=== PATIENT | female | born 1970 | race Caucasian/White ===

== ENCOUNTER 2018-01-21 12:44 | Emergency (ER) | payer OTHER ==
[2018-01-21] MEDS ORDERED: IPRATROPIUM 0.5 MG/2.5 ML NEBU INHALATION STA (13:54)
[2018-01-21] MEDS ORDERED: SODIUM CHLORIDE 0.9% 1,000 ML IV STA ×2 (13:54)
[2018-01-21] MEDS ORDERED: methylPREDNISolone SOD SUCCI 125 MG/2 ML VIAL IV STA (13:54)
[2018-01-21] MEDS ORDERED: LEVOFLOXACIN 750MG-D5W PMX 750 MG in DEXTROSE/WATER 1 150ML.BAG IVPB STA (13:54)
[2018-01-21] MEDS ORDERED: ALBUTEROL NEBULIZED 2.5 MG/3 ML INHALATION STA (13:54)
[2018-01-21 14:18] VITALS: PULSE 88
--- NOTE | 2018-01-21 14:36 | ED ---
General Adult HPI - General Chief complaint: Upper Respiratory Infection Stated complaint: SOB Time Seen by Provider: 01/21/18 13:41 Source: patient, RN notes reviewed, old records reviewed Mode of arrival: wheelchair Limitations: no limitations - History of Present Illness Initial comments: This is a 47-year-old female the ER for evaluation. States she presents for evaluation regards to cough congestion difficulty breathing. Patient was recently treated for ear infection upper respiratory infection is progressively worsened. Significant shortness of breath that is worsening. Patient is a history of smoking. No travel history no sick contacts, patient does have history of DVT - Related Data Previous Rx's Medication Instructions Recorded Albuterol Sulfate [Proair Hfa] 1 - 2 puff INHALATION Q4H PRN #1 01/21/18 inhaler Levofloxacin [Levaquin] 500 mg PO DAILY #7 tab 01/21/18 predniSONE 50 mg PO DAILY #5 tab 01/21/18 Allergies Allergy/AdvReac Type Severity Reaction Status Date / Time No Known Allergies Allergy Verified 01/21/18 13:06 Review of Systems ROS Statement: Those systems with pertinent positive or pertinent negative responses have been documented in the HPI. ROS Other: All systems not noted in ROS Statement are negative. Past Medical History Past Medical History: Thyroid Disorder History of Any Multi-Drug Resistant Organisms: None Reported Past Surgical History: Tubal Ligation Additional Past Surgical History / Comment(s): breast augmentation, "tummy tuck ", "bladder prolapse surgery" Past Psychological History: No Psychological Hx Reported Smoking Status: Current every day smoker Past Alcohol Use History: Rare Past Drug Use History: Marijuana General Exam Limitations: no limitations General appearance: alert, in no apparent distress Head exam: Present: atraumatic, normocephalic, normal inspection Eye exam: Present: normal appearance, PERRL, EOMI. Absent: scleral icterus, conjunctival injection, periorbital swelling ENT exam: Present: normal exam, mucous membranes moist Neck exam: Present: normal inspection. Absent: tenderness, meningismus, lymphadenopathy Respiratory exam: Present: normal lung sounds bilaterally. Absent: respiratory distress, wheezes, rales, rhonchi, stridor Cardiovascular Exam: Present: regular rate, normal rhythm, normal heart sounds. Absent: systolic murmur, diastolic murmur, rubs, gallop, clicks GI/Abdominal exam: Present: soft, normal bowel sounds. Absent: distended, tenderness, guarding, rebound, rigid Extremities exam: Present: normal inspection, full ROM, normal capillary refill. Absent: tenderness, pedal edema, joint swelling, calf tenderness Back exam: Present: normal inspection Neurological exam: Present: alert, oriented X3, CN II-XII intact Psychiatric exam: Present: normal affect, normal mood Skin exam: Present: warm, dry, intact, normal color. Absent: rash Course Vital Signs 01/21/18 01/21/18 13:03 14:18 Temperature 97.8 F Pulse Rate 81 88 Respiratory 18 22 Rate Blood Pressure 130/79 O2 Sat by Pulse 95 Oximetry - Reevaluation(s) Reevaluation #1: 01/21/18 15:25 Patient symptoms are much improved after breathing treatment EKG Findings - EKG Comments: EKG Findings:: EKG shows normal sinus rhythm rate of 69, KS 134, QRS 80, QTC 407 Medical Decision Making - Medical Decision Making 47 female DEL with cough and congestion, patient has acute bronchitis, urged to continue quit smoking. Patient was placed on steroids albuterol can be discharged home - Lab Data Result diagrams: 01/21/18 14:16 01/21/18 14:16 Lab Results 01/21/18 01/21/18 01/21/18 Range/Units 14:16 14:16 14:16 WBC 13.1 H (3.8-10.6) k/uL RBC 4.76 (3.80-5.40) m/uL Hgb 15.7 (11.4-16.0) gm/dL Hct 45.4 (34.0-46.0) % MCV 95.4 (80.0-100.0) fL MCH 33.0 (25.0-35.0) pg MCHC 34.6 (31.0-37.0) g/dL RDW 13.9 (11.5-15.5) % Plt Count 236 (150-450) k/uL Neutrophils % 69 % Lymphocytes % 23 % Monocytes % 4 % Eosinophils % 2 % Basophils % 0 % Neutrophils # 9.1 H (1.3-7.7) k/uL Lymphocytes # 3.0 (1.0-4.8) k/uL Monocytes # 0.5 (0-1.0) k/uL Eosinophils # 0.2 (0-0.7) k/uL Basophils # 0.0 (0-0.2) k/uL PT (9.0-12.0) sec INR (<1.2) APTT (22.0-30.0) sec D-Dimer (<0.60) mg/L FEU Sodium 140 (137-145) mmol/L Potassium 4.6 (3.5-5.1) mmol/L Chloride 97 L (98-107) mmol/L Carbon Dioxide 32 H (22-30) mmol/L Anion Gap 11 mmol/L BUN 12 (7-17) mg/dL Creatinine 0.70 (0.52-1.04) mg/dL Est GFR (CKD-EPI)AfAm >90 (>60 ml/min/1.73 sqM) Est GFR (CKD-EPI)NonAf >90 (>60 ml/min/1.73 sqM) Glucose 85 (74-99) mg/dL Calcium 9.4 (8.4-10.2) mg/dL Magnesium 2.1 (1.6-2.3) mg/dL Total Bilirubin 0.9 (0.2-1.3) mg/dL AST 23 (14-36) U/L ALT 44 (9-52) U/L Alkaline Phosphatase 85 (38-126) U/L Total Creatine Kinase 35 (30-135) U/L CK-MB (CK-2) 0.5 (0.0-2.4) ng/mL CK-MB (CK-2) Rel Index 1.4 Troponin I <0.012 (0.000-0.034) ng/mL NT-Pro-B Natriuret Pep pg/mL Total Protein 6.6 (6.3-8.2) g/dL Albumin 4.0 (3.5-5.0) g/dL 01/21/18 01/21/18 Range/Units 14:16 14:16 WBC (3.8-10.6) k/uL RBC (3.80-5.40) m/uL Hgb (11.4-16.0) gm/dL Hct (34.0-46.0) % MCV (80.0-100.0) fL MCH (25.0-35.0) pg MCHC (31.0-37.0) g/dL RDW (11.5-15.5) % Plt Count (150-450) k/uL Neutrophils % % Lymphocytes % % Monocytes % % Eosinophils % % Basophils % % Neutrophils # (1.3-7.7) k/uL Lymphocytes # (1.0-4.8) k/uL Monocytes # (0-1.0) k/uL Eosinophils # (0-0.7) k/uL Basophils # (0-0.2) k/uL PT 9.8 (9.0-12.0) sec INR 1.0 (<1.2) APTT 23.2 (22.0-30.0) sec D-Dimer 0.58 (<0.60) mg/L FEU Sodium (137-145) mmol/L Potassium (3.5-5.1) mmol/L Chloride (98-107) mmol/L Carbon Dioxide (22-30) mmol/L Anion Gap mmol/L BUN (7-17) mg/dL Creatinine (0.52-1.04) mg/dL Est GFR (CKD-EPI)AfAm (>60 ml/min/1.73 sqM) Est GFR (CKD-EPI)NonAf (>60 ml/min/1.73 sqM) Glucose (74-99) mg/dL Calcium (8.4-10.2) mg/dL Magnesium (1.6-2.3) mg/dL Total Bilirubin (0.2-1.3) mg/dL AST (14-36) U/L ALT (9-52) U/L Alkaline Phosphatase (38-126) U/L Total Creatine Kinase (30-135) U/L CK-MB (CK-2) (0.0-2.4) ng/mL CK-MB (CK-2) Rel Index Troponin I (0.000-0.034) ng/mL NT-Pro-B Natriuret Pep 71 pg/mL Total Protein (6.3-8.2) g/dL Albumin (3.5-5.0) g/dL - Radiology Data Radiology results: report reviewed (Chest x-rays negative for acute disease), image reviewed Disposition Clinical Impression: Bronchitis, Asthmatic bronchitis, Upper respiratory infection Disposition: HOME SELF-CARE Condition: Good Instructions: Acute Bronchitis (ED), Wheezing (ED) Prescriptions: Albuterol Sulfate [Proair Hfa] 1 - 2 puff INHALATION Q4H PRN #1 inhaler PRN Reason: Shortness Of Breath Levofloxacin [Levaquin] 500 mg PO DAILY #7 tab predniSONE 50 mg PO DAILY #5 tab Is patient prescribed a controlled substance at d/c from ED?: No Referrals: Fitz Ross MD [Primary Care Provider] - 1-2 days
[2018-01-21 14:38] LABS: ALT 44 U/L (9-52); AST 23 U/L (14-36); Alkaline Phosphatase 85 U/L (38-126); Anion Gap 11 mmol/L; Blood Urea Nitrogen 12 mg/dL (7-17); Calcium 9.4 mg/dL (8.4-10.2); Carbon Dioxide 32 mmol/L (22-30); Chloride 97 mmol/L (98-107); Glucose 85 mg/dL (74-99); Magnesium 2.1 mg/dL (1.6-2.3); Potassium 4.6 mmol/L (3.5-5.1); Sodium 140 mmol/L (137-145); Total Bilirubin 0.9 mg/dL (0.2-1.3); Total Protein 6.6 g/dL (6.3-8.2)
[2018-01-21 14:39] LABS: Basophils % (A) 0 %; Eosinophils # (A) 0.2 k/uL (0-0.7); Eosinophils % (A) 2 %; HCT 45.4 % (34.0-46.0); HGB 15.7 gm/dL (11.4-16.0); Lymphocytes % (A) 23 %; MCHC 34.6 g/dL (31.0-37.0); MCV 95.4 fL (80.0-100.0); Mean Platelet Volume 8.1; Monocytes # (A) 0.5 k/uL (0-1.0); Monocytes % (A) 4 %; Neutrophils # (A) 9.1 k/uL (1.3-7.7); Neutrophils % (A) 69 %; Platelet Count 236 k/uL (150-450); RBC 4.76 m/uL (3.80-5.40); RDW 13.9 % (11.5-15.5); WBC 13.1 k/uL (3.8-10.6)
[2018-01-21 14:41] LABS: D-Dimer 0.58 mg/L FEU (<0.60); Partial Thromboplastin Time 23.2 sec (22.0-30.0); Prothrombin Time 9.8 sec (9.0-12.0)
[2018-01-21 14:53] LABS: Creatine Kinase 35 U/L (30-135)
[2018-01-21 15:06] LABS: Creatine Kinase MB 0.5 ng/mL (0.0-2.4); Troponin I <0.012 ng/mL (0.000-0.034)
--- NOTE | 2018-01-21 15:20 | XR ---
EXAMINATION TYPE: XR chest 2V DATE OF EXAM: 01/21/2018 COMPARISON: NONE HISTORY: Chest pain TECHNIQUE: Frontal and lateral views of the chest are obtained. FINDINGS: There is no focal air space opacity. No evidence for pneumothorax. No pleural effusion. The cardiac silhouette size is within normal limits. The osseous structures are grossly intact. IMPRESSION: 1. No acute cardiopulmonary process.
[2018-01-21 16:55] VITALS: BP 156/81; RESP 18; TEMP 98.5
== END 2018-01-21 17:00 | disposition home or self-care (01) ==
LOC: EC 12:44
DX: J45.909 Unspecified asthma, uncomplicated (principal); J06.9 Acute upper respiratory infection, unspecified; F17.200 Nicotine dependence, unspecified, uncomplicated
CPT/HCPCS: 99284; 96365; 96375; 96361; 36415; 94640; 93005; 85379; 83880; 80053; 82550; 82553; 83735; 84484; 85025; 85610; 85730; 71046; J2930; J1956

== ENCOUNTER 2018-01-28 09:54 | Emergency (ER) | payer OTHER ==
[2018-01-28 09:58] VITALS: BP 155/92; PULSE 89; RESP 16; TEMP 99
--- NOTE | 2018-01-28 10:34 | ED ---
Extremity Problem HPI - General Chief complaint: Extremity Problem,Nontraumatic Stated complaint: Poss blood clot in hand Time Seen by Provider: 01/28/18 10:03 Source: patient, RN notes reviewed Mode of arrival: ambulatory Limitations: no limitations - History of Present Illness Initial comments: This a 47-year-old female presents emergency Department chief complaint of left hand swelling. Patient had an IV one week ago and states it just started swelling. Patient concerned that she may have a climbing. Patient denies any chest pain or shortness breath. Patient states on the pain is in her left hand. There is no pain in her forearm or upper arm. Patient states she has not applied any compresses or taken any anti-inflammatories for. - Related Data Home Medications Medication Instructions Recorded Confirmed Levothyroxine Sodium [Levoxyl] 125 mcg PO DAILY 01/28/18 01/28/18 Allergies Allergy/AdvReac Type Severity Reaction Status Date / Time No Known Allergies Allergy Verified 01/28/18 09:59 Review of Systems ROS Statement: Those systems with pertinent positive or pertinent negative responses have been documented in the HPI. ROS Other: All systems not noted in ROS Statement are negative. Past Medical History Past Medical History: Thyroid Disorder History of Any Multi-Drug Resistant Organisms: None Reported Past Surgical History: Tubal Ligation Additional Past Surgical History / Comment(s): breast augmentation, "tummy tuck ", "bladder prolapse surgery" Past Psychological History: No Psychological Hx Reported Smoking Status: Current every day smoker Past Alcohol Use History: Rare Past Drug Use History: Marijuana General Exam Limitations: no limitations General appearance: alert, in no apparent distress Head exam: Present: atraumatic, normocephalic, normal inspection Respiratory exam: Present: normal lung sounds bilaterally. Absent: respiratory distress, wheezes, rales, rhonchi, stridor Cardiovascular Exam: Present: regular rate, normal rhythm, normal heart sounds. Absent: systolic murmur, diastolic murmur, rubs, gallop, clicks Extremities exam: Present: other (Left hand there is mild swelling on the dorsal aspect and mild area of erythema there are normal radial pulses, cap refill less than 2 seconds there is no tenderness of the forearm or swelling or any tenderness or swelling of the upper arm) Course Vital Signs 01/28/18 09:57 Temperature 99 F Pulse Rate 89 Respiratory 16 Rate Blood Pressure 155/92 O2 Sat by Pulse 96 Oximetry Medical Decision Making - Medical Decision Making 47-year-old female presented for left hand pain and swelling. Patient has superficial thrombophlebitis after IV start. There is no signs of infection patient was on antibiotics prior to this. Patient has superficial phlebitis and will apply warm compresses and take anti-inflammatories as directed. Patient is advised to have a recheck in 48 hours or return for any worsening symptoms. Disposition Clinical Impression: Superficial thrombophlebitis Disposition: HOME SELF-CARE Condition: Stable Instructions: Superficial Thrombophlebitis (ED) Additional Instructions: Please return to the Emergency Department if symptoms worsen or any other concerns. Is patient prescribed a controlled substance at d/c from ED?: No Referrals: Fitz Ross MD [Primary Care Provider] - 1-2 days Time of Disposition: 10:34
== END 2018-01-28 10:46 | disposition home or self-care (01) ==
LOC: EC 09:54
DX: I80.8 Phlebitis and thrombophlebitis of other sites (principal); E07.9 Disorder of thyroid, unspecified; F17.200 Nicotine dependence, unspecified, uncomplicated; Z79.899 Other long term (current) drug therapy
CPT/HCPCS: 99283

== ENCOUNTER 2018-10-03 11:47 | Emergency (ER) | payer OTHER ==
[2018-10-03 12:08] VITALS: RESP 18; TEMP 98.1
[2018-10-03] MEDS ORDERED: SODIUM CHLORIDE 0.9% 1,000 ML IV ONE (12:46)
[2018-10-03] MEDS ORDERED: KETOROLAC 30 MG/ML 1 ML VIAL IVP STA (12:46)
--- NOTE | 2018-10-03 13:11 | ED ---
Back Pain HPI - General Chief Complaint: Back Pain/Injury Stated Complaint: flank pain Time Seen by Provider: 10/03/18 12:19 Source: patient, RN notes reviewed, old records reviewed Limitations: no limitations - History of Present Illness Initial Comments: 48-year-old female presents weren't sure to 2 days of right flank pain. She reports she's had history of urinary tract infections that cause infections or kidney. Patient was concerned she may have had kidney stone. She is never had a kidney stone in the past. She denies any bloody urine but reports she's been going frequently. Patient states that she has had no fevers or chills. She denies any nausea or vomiting. - Related Data Home Medications Medication Instructions Recorded Confirmed Levothyroxine Sodium [Levoxyl] 125 mcg PO DAILY 01/28/18 10/03/18 Rivaroxaban [Xarelto] 10 mg PO DAILY 10/03/18 10/03/18 Previous Rx's Medication Instructions Recorded Levofloxacin [Levaquin] 750 mg PO DAILY 5 Days #5 tab 10/03/18 Allergies Allergy/AdvReac Type Severity Reaction Status Date / Time No Known Allergies Allergy Verified 10/03/18 12:20 Review of Systems ROS Statement: Those systems with pertinent positive or pertinent negative responses have been documented in the HPI. ROS Other: All systems not noted in ROS Statement are negative. Past Medical History Past Medical History: Thyroid Disorder History of Any Multi-Drug Resistant Organisms: None Reported Past Surgical History: Tubal Ligation Additional Past Surgical History / Comment(s): breast augmentation, "tummy tuck ", "bladder prolapse surgery" Past Psychological History: No Psychological Hx Reported Smoking Status: Current every day smoker Past Alcohol Use History: Rare Past Drug Use History: Marijuana General Exam - General Exam Comments Initial Comments: Is a 48-year-old female. Alert and oriented. No distress. Limitations: no limitations General appearance: alert, in no apparent distress Head exam: Present: atraumatic, normocephalic, normal inspection Eye exam: Present: normal appearance, PERRL, EOMI. Absent: scleral icterus, conjunctival injection, periorbital swelling ENT exam: Present: normal exam, mucous membranes moist Neck exam: Present: normal inspection. Absent: tenderness, meningismus, lymphadenopathy Respiratory exam: Present: normal lung sounds bilaterally. Absent: respiratory distress, wheezes, rales, rhonchi, stridor Cardiovascular Exam: Present: regular rate, normal rhythm, normal heart sounds. Absent: systolic murmur, diastolic murmur, rubs, gallop, clicks GI/Abdominal exam: Present: soft, normal bowel sounds. Absent: distended, tenderness, guarding, rebound, rigid Extremities exam: Present: normal inspection, full ROM, normal capillary refill. Absent: tenderness, pedal edema, joint swelling, calf tenderness Back exam: Present: normal inspection Neurological exam: Present: alert, oriented X3, CN II-XII intact Psychiatric exam: Present: normal affect, normal mood Course Vital Signs 10/03/18 10/03/18 12:05 14:18 Temperature 98.1 F Pulse Rate 68 62 Respiratory 18 18 Rate Blood Pressure 162/98 153/88 O2 Sat by Pulse 98 99 Oximetry Medical Decision Making - Medical Decision Making 48 year old with left flank pain. Patient labs and KUB are normal. Patient UA shows high bacteria. Discussed follow up with PCP and will start on antibiotic for UTI. Discussed return parameters. - Lab Data Result diagrams: 10/03/18 12:50 10/03/18 12:50 Lab Results 10/03/18 10/03/18 10/03/18 Range/Units 12:50 12:50 12:50 WBC 8.1 (3.8-10.6) k/uL RBC 4.90 (3.80-5.40) m/uL Hgb 16.1 H (11.4-16.0) gm/dL Hct 48.1 H (34.0-46.0) % MCV 98.1 (80.0-100.0) fL MCH 32.8 (25.0-35.0) pg MCHC 33.4 (31.0-37.0) g/dL RDW 12.5 (11.5-15.5) % Plt Count 209 (150-450) k/uL Neutrophils % 55 % Lymphocytes % 34 % Monocytes % 6 % Eosinophils % 3 % Basophils % 0 % Neutrophils # 4.5 (1.3-7.7) k/uL Lymphocytes # 2.8 (1.0-4.8) k/uL Monocytes # 0.5 (0-1.0) k/uL Eosinophils # 0.2 (0-0.7) k/uL Basophils # 0.0 (0-0.2) k/uL Sodium 141 (137-145) mmol/L Potassium 4.7 (3.5-5.1) mmol/L Chloride 104 (98-107) mmol/L Carbon Dioxide 31 H (22-30) mmol/L Anion Gap 6 mmol/L BUN 11 (7-17) mg/dL Creatinine 0.81 (0.52-1.04) mg/dL Est GFR (CKD-EPI)AfAm >90 (>60 ml/min/1.73 sqM) Est GFR (CKD-EPI)NonAf 86 (>60 ml/min/1.73 sqM) Glucose 95 (74-99) mg/dL Calcium 9.7 (8.4-10.2) mg/dL Total Bilirubin 0.7 (0.2-1.3) mg/dL AST 19 (14-36) U/L ALT 23 (9-52) U/L Alkaline Phosphatase 57 (38-126) U/L Total Protein 7.2 (6.3-8.2) g/dL Albumin 4.5 (3.5-5.0) g/dL Urine Color Light Yellow Urine Appearance Clear (Clear) Urine pH 6.0 (5.0-8.0) Ur Specific [place] 1.008 (1.001-1.035) Urine Protein Negative (Negative) Urine Glucose (UA) Negative (Negative) Urine Ketones Negative (Negative) Urine Blood Negative (Negative) Urine Nitrite Negative (Negative) Urine Bilirubin Negative (Negative) Urine Urobilinogen <2.0 (<2.0) mg/dL Ur Leukocyte Esterase Trace H (Negative) Urine RBC <1 (0-5) /hpf Urine WBC 3 (0-5) /hpf Ur Squamous Epith Cells 2 (0-4) /hpf Urine Bacteria Rare H (None) /hpf Urine Mucus Rare H (None) /hpf - Radiology Data Radiology results: report reviewed Disposition Clinical Impression: UTI (urinary tract infection) Disposition: HOME SELF-CARE Condition: Good Instructions: Flank Pain (ED) Additional Instructions: Patient has a close follow-up with primary care physician. Take antibiotic as prescribed. Motrin Tylenol for pain. Return to emergency department if any alarming signs or symptoms occur. Prescriptions: Levofloxacin [Levaquin] 750 mg PO DAILY 5 Days #5 tab Is patient prescribed a controlled substance at d/c from ED?: No Referrals: Fitz Ross MD [Primary Care Provider] - 1-2 days Time of Disposition: 13:49
[2018-10-03 13:15] LABS: Basophils % (A) 0 %; Eosinophils # (A) 0.2 k/uL (0-0.7); Eosinophils % (A) 3 %; HCT 48.1 % (34.0-46.0); HGB 16.1 gm/dL (11.4-16.0); Lymphocytes # (A) 2.8 k/uL (1.0-4.8); Lymphocytes % (A) 34 %; MCH 32.8 pg (25.0-35.0); MCHC 33.4 g/dL (31.0-37.0); MCV 98.1 fL (80.0-100.0); Mean Platelet Volume 8.3; Monocytes # (A) 0.5 k/uL (0-1.0); Monocytes % (A) 6 %; Neutrophils # (A) 4.5 k/uL (1.3-7.7); Neutrophils % (A) 55 %; Platelet Count 209 k/uL (150-450); RDW 12.5 % (11.5-15.5); WBC 8.1 k/uL (3.8-10.6)
[2018-10-03 13:16] LABS: Appearance,Urine Clear (Clear); Bacteria,Urine Rare /hpf; Bilirubin,Urine Negative (Negative); Blood,Urine Negative (Negative); Color,Urine Light Yellow; Glucose,Urine (UA) Negative (Negative); Ketones,Urine Negative (Negative); Leukocyte Esterase,Urine Trace (Negative); Mucus,Urine Rare /hpf; Nitrite,Urine Negative (Negative); Protein,Urine Negative (Negative); RBC,Urine <1 /hpf (0-5); Specific Gravity,Urine 1.008 (1.001-1.035); Squamous Epithelial Cell,Urine 2 /hpf (0-4); Urobilinogen,Urine <2.0 mg/dL (<2.0)
[2018-10-03 13:18] LABS: ALT 23 U/L (9-52); AST 19 U/L (14-36); Albumin 4.5 g/dL (3.5-5.0); Alkaline Phosphatase 57 U/L (38-126); Anion Gap 6 mmol/L; Blood Urea Nitrogen 11 mg/dL (7-17); Calcium 9.7 mg/dL (8.4-10.2); Carbon Dioxide 31 mmol/L (22-30); Chloride 104 mmol/L (98-107); Glucose 95 mg/dL (74-99); Potassium 4.7 mmol/L (3.5-5.1); Sodium 141 mmol/L (137-145); Total Bilirubin 0.7 mg/dL (0.2-1.3); Total Protein 7.2 g/dL (6.3-8.2)
--- NOTE | 2018-10-03 13:36 | XR ---
EXAMINATION TYPE: XR KUB DATE OF EXAM: 10/03/2018 1:32 PM CLINICAL HISTORY: Right posterior flank pain today. TECHNIQUE: Two Upright KUB images of the abdomen are obtained. COMPARISON: None. FINDINGS: Scattered gas is seen in non-distended stomach and small bowel loops. Gas and fecal materia l is seen in non-distended colon. There is no visceromegaly, pneumoperitoneum, or abnormal calcificat ion appreciated. The lung bases are clear and the osseous structures are intact. IMPRESSION: Overall nonobstructive bowel gas pattern.
[2018-10-03 14:19] VITALS: BP 153/88; PULSE 62
== END 2018-10-03 14:19 | disposition home or self-care (01) ==
LOC: EC 11:47
DX: N39.0 Urinary tract infection, site not specified (principal); E07.9 Disorder of thyroid, unspecified; F17.200 Nicotine dependence, unspecified, uncomplicated; Z79.01 Long term (current) use of anticoagulants; Z79.899 Other long term (current) drug therapy; Z98.51 Tubal ligation status; Z98.890 Other specified postprocedural states
CPT/HCPCS: 36415; 80053; 85025; 81001; 74018; 99284; 96374; 96361; J1885

== ENCOUNTER 2018-12-01 21:15 | Inpatient (IN) | payer OTHER ==
[2018-12-01] MEDS ORDERED: SODIUM CHLORIDE 0.9% 500 ML 500 ML IV STA (22:08)
[2018-12-01] MEDS ORDERED: IPRATROPIUM 0.5 MG/2.5 ML NEBU INHALATION STA (22:08)
[2018-12-01] MEDS ORDERED: AZITHROMYCIN 500 MG in SODIUM CHLORIDE 0.9% 250 ML IVPB STA (22:08)
[2018-12-01] MEDS ORDERED: ALBUTEROL NEBULIZED 2.5 MG/3 ML INHALATION STA (22:08)
[2018-12-01 22:28] LABS: Basophils % (A) 0 %; Eosinophils # (A) 0.1 k/uL (0-0.7); Eosinophils % (A) 1 %; HCT 49.3 % (34.0-46.0); Lymphocytes % (A) 18 %; MCH 31.4 pg (25.0-35.0); MCHC 32.4 g/dL (31.0-37.0); Mean Platelet Volume 8.3; Monocytes # (A) 0.2 k/uL (0-1.0); Monocytes % (A) 4 %; Neutrophils # (A) 4.1 k/uL (1.3-7.7); Neutrophils % (A) 74 %; Platelet Count 184 k/uL (150-450); RBC 5.08 m/uL (3.80-5.40); RDW 12.7 % (11.5-15.5); WBC 5.6 k/uL (3.8-10.6)
[2018-12-01 22:33] LABS: INR 0.9 (<1.2); Partial Thromboplastin Time 26.8 sec (22.0-30.0); Prothrombin Time 9.8 sec (9.0-12.0)
[2018-12-01 22:34] LABS: Anion Gap 9 mmol/L; Calcium 9.2 mg/dL (8.4-10.2); Carbon Dioxide 27 mmol/L (22-30); Chloride 101 mmol/L (98-107); Glucose 119 mg/dL (74-99); Sodium 137 mmol/L (137-145); Total Bilirubin 0.5 mg/dL (0.2-1.3); Total Protein 6.9 g/dL (6.3-8.2)
[2018-12-01 22:37] LABS: ALT 41 U/L (9-52); AST 43 U/L (14-36); Alkaline Phosphatase 55 U/L (38-126); Blood Urea Nitrogen 12 mg/dL (7-17); Potassium 4.7 mmol/L (3.5-5.1)
--- NOTE | 2018-12-01 22:48 | ED ---
SOB HPI - General Source: patient Mode of arrival: wheelchair Limitations: no limitations <Raya Borjas - Last Filed: 12/02/18 01:22> <Young Allen - Last Filed: 12/05/18 08:57> - General Chief Complaint: Shortness of Breath Stated Complaint: Low O2 Time Seen by Provider: 12/01/18 21:40 - History of Present Illness Initial Comments: 48-year-old female patient presents to the emergency department today sent by urgent care for evaluation of low oxygen saturation. Patient states that for the last week she has been experiencing cough and shortness of breath. States that symptoms worsened today. Patient states she has been very short of breath with activity. States she has been quite tired and fatigued. Patient does admit to smoking cigarettes. States she does do breathing treatments at home for history of chronic bronchitis. States that she did one breathing treatment early in the morning but it didn't seem to help her. Patient states she did receive a breathing treatment and steroids at the urgent care. States it did find pneumonia on x-ray and sent her here for further evaluation. Patient states she has had fevers throughout the week. States today the fever was around 99.5F. She denies any chest pain, abdominal pain, nausea, or vomiting. Denies any palpitations. Patient denies any recent rash, abdominal pain, nausea, vomiting, diarrhea, constipation, back pain, numbness, tingling, dizziness, weakness, hematuria, dysuria, urinary urgency, urinary frequency, headache, visual changes, or any other complaints. (Raya Borjas) - Related Data Home Medications Medication Instructions Recorded Confirmed Levothyroxine Sodium [Levoxyl] 125 mcg PO DAILY 01/28/18 12/01/18 Rivaroxaban [Xarelto] 10 mg PO DAILY 10/03/18 12/01/18 Albuterol Nebulized [Ventolin 2.5 mg INHALATION RT-Q6H PRN 12/01/18 12/01/18 Nebulized] Albuterol Sulfate [Proair Hfa] 2 puff INHALATION RT-Q6H PRN 12/01/18 12/01/18 D-Methorphan/PE/Acetaminophen 1 pack PO DAILY PRN 12/01/18 12/01/18 [Theraflu Ms Severe Cold Pckt] Ibuprofen [Motrin Ib] 400 mg PO Q6H PRN 12/01/18 12/01/18 Ibuprofen/Pseudoephedrine HCl 1 tab PO Q6HR PRN 12/01/18 12/01/18 [Advil Cold & Sinus Caplet] Allergies Allergy/AdvReac Type Severity Reaction Status Date / Time No Known Allergies Allergy Verified 12/01/18 22:01 Review of Systems ROS Other: All systems not noted in ROS Statement are negative. <Raya Borjas - Last Filed: 12/02/18 01:22> ROS Other: All systems not noted in ROS Statement are negative. <Young Allen - Last Filed: 12/05/18 08:57> ROS Statement: Those systems with pertinent positive or pertinent negative responses have been documented in the HPI. Past Medical History Past Medical History: Deep Vein Thrombosis (DVT), Thyroid Disorder History of Any Multi-Drug Resistant Organisms: None Reported Past Surgical History: Tubal Ligation Additional Past Surgical History / Comment(s): breast augmentation, "tummy tuck", "bladder prolapse surgery" Past Psychological History: No Psychological Hx Reported Smoking Status: Current every day smoker Past Alcohol Use History: Rare Past Drug Use History: Marijuana <Raya Borjas - Last Filed: 12/02/18 01:22> General Exam Limitations: no limitations General appearance: alert, in no apparent distress, other (This is a well- developed, well-nourished adult female patient who appears to be in mild respir atory distress. Vital signs upon presentation are temperature 98.2F, pulse 87, respirations 32, blood pressure 135/99, pulse ox 84% on room air.) Eye exam: Present: normal appearance, PERRL, EOMI. Absent: scleral icterus, conjunctival injection, periorbital swelling ENT exam: Present: normal exam, normal oropharynx, mucous membranes moist, TM's normal bilaterally Respiratory exam: Present: wheezes (Scattered expiratory wheezing throughout the posterior lung vergara), accessory muscle use, other (Pursed lip breathing. Abdominal accessory muscle use.). Absent: normal lung sounds bilaterally, respiratory distress, rales, rhonchi, stridor Cardiovascular Exam: Present: regular rate, normal rhythm, normal heart sounds. Absent: systolic murmur, diastolic murmur, rubs, gallop, clicks GI/Abdominal exam: Present: soft, normal bowel sounds. Absent: distended, tenderness, guarding, rebound, rigid Neurological exam: Present: alert, oriented X3, CN II-XII intact Psychiatric exam: Present: normal affect, normal mood Skin exam: Present: warm, dry, intact, normal color. Absent: rash <Raya Borjas - Last Filed: 12/02/18 01:22> Course Vital Signs 12/01/18 12/01/18 12/01/18 21:26 21:30 21:32 Temperature 98.2 F Pulse Rate 87 Respiratory 20 32 H Rate Blood Pressure 135/99 135/99 O2 Sat by Pulse 84 L 92 L 84 L Oximetry 12/01/18 12/01/18 12/01/18 22:10 22:37 22:40 Temperature 98.2 F Pulse Rate 73 70 Respiratory 13 11 L Rate Blood Pressure 142/85 132/108 O2 Sat by Pulse 95 95 Oximetry 12/01/18 12/01/18 12/01/18 22:47 23:05 23:10 Temperature Pulse Rate 73 76 87 Respiratory 24 Rate Blood Pressure 131/77 O2 Sat by Pulse 97 Oximetry 12/01/18 12/02/18 23:30 01:40 Temperature Pulse Rate 78 98 Respiratory 16 Rate Blood Pressure 136/89 O2 Sat by Pulse 95 Oximetry Medical Decision Making - Lab Data Result diagrams: 12/01/18 20:04 12/01/18 20:04 - Radiology Data Radiology results: report reviewed, image reviewed <Kit Borjasfernie Menendez - Last Filed: 12/02/18 01:22> - Lab Data Result diagrams: 12/04/18 07:25 12/04/18 07:25 <Young Allen - Last Filed: 12/05/18 08:57> - Medical Decision Making 48-year-old female patient presents to the emergency department sent by urgent care for pneumonia and hypoxia. Physical examination did reveal scattered expiratory wheezing in the posterior lung vergara. Patient does appear obviously short of breath with pursed lip breathing and to 3 word sentences. Labs reviewed and were unremarkable. We did repeat chest x-ray here showed no evidence of pneumonia however does show some signs of COPD. Patient symptoms are consistent with acute COPD exacerbation with hypoxia. Ambulatory pulse ox on room air is 77-90% after breathing treatment and steroids. She did receive 125 mg of Solu-Medrol at urgent care. Patient will be admitted for pulmonary evaluation, continued steroids, and breathing treatments. I did discuss findings, results, and plan with the patient, she is agreeable. (Raya Borjas) I saw this patient in conjunction with the physician medical assistant dermatology. I performed independent history and physical exam. Agree with case management. (Young Allen) - Lab Data Lab Results 12/01/18 12/01/18 12/01/18 Range/Units 20:04 20:04 20:04 WBC 5.6 (3.8-10.6) k/uL RBC 5.08 (3.80-5.40) m/uL Hgb 16.0 (11.4-16.0) gm/dL Hct 49.3 H (34.0-46.0) % MCV 97.0 (80.0-100.0) fL MCH 31.4 (25.0-35.0) pg MCHC 32.4 (31.0-37.0) g/dL RDW 12.7 (11.5-15.5) % Plt Count 184 (150-450) k/uL Neutrophils % 74 % Lymphocytes % 18 % Monocytes % 4 % Eosinophils % 1 % Basophils % 0 % Neutrophils # 4.1 (1.3-7.7) k/uL Lymphocytes # 1.0 (1.0-4.8) k/uL Monocytes # 0.2 (0-1.0) k/uL Eosinophils # 0.1 (0-0.7) k/uL Basophils # 0.0 (0-0.2) k/uL PT (9.0-12.0) sec INR (<1.2) APTT (22.0-30.0) sec Sodium 137 (137-145) mmol/L Potassium 4.7 (3.5-5.1) mmol/L Chloride 101 (98-107) mmol/L Carbon Dioxide 27 (22-30) mmol/L Anion Gap 9 mmol/L BUN 12 (7-17) mg/dL Creatinine 0.83 (0.52-1.04) mg/dL Est GFR (CKD-EPI)AfAm >90 (>60 ml/min/1.73 sqM) Est GFR (CKD-EPI)NonAf 83 (>60 ml/min/1.73 sqM) Glucose 119 H (74-99) mg/dL Plasma Lactic Acid Garcia 1.1 (0.7-2.0) mmol/L Calcium 9.2 (8.4-10.2) mg/dL Total Bilirubin 0.5 (0.2-1.3) mg/dL AST 43 H (14-36) U/L ALT 41 (9-52) U/L Alkaline Phosphatase 55 (38-126) U/L Troponin I (0.000-0.034) ng/mL Total Protein 6.9 (6.3-8.2) g/dL Albumin 4.0 (3.5-5.0) g/dL 12/01/18 12/01/18 Range/Units 20:04 20:04 WBC (3.8-10.6) k/uL RBC (3.80-5.40) m/uL Hgb (11.4-16.0) gm/dL Hct (34.0-46.0) % MCV (80.0-100.0) fL MCH (25.0-35.0) pg MCHC (31.0-37.0) g/dL RDW (11.5-15.5) % Plt Count (150-450) k/uL Neutrophils % % Lymphocytes % % Monocytes % % Eosinophils % % Basophils % % Neutrophils # (1.3-7.7) k/uL Lymphocytes # (1.0-4.8) k/uL Monocytes # (0-1.0) k/uL Eosinophils # (0-0.7) k/uL Basophils # (0-0.2) k/uL PT 9.8 (9.0-12.0) sec INR 0.9 (<1.2) APTT 26.8 (22.0-30.0) sec Sodium (137-145) mmol/L Potassium (3.5-5.1) mmol/L Chloride (98-107) mmol/L Carbon Dioxide (22-30) mmol/L Anion Gap mmol/L BUN (7-17) mg/dL Creatinine (0.52-1.04) mg/dL Est GFR (CKD-EPI)AfAm (>60 ml/min/1.73 sqM) Est GFR (CKD-EPI)NonAf (>60 ml/min/1.73 sqM) Glucose (74-99) mg/dL Plasma Lactic Acid Garcia (0.7-2.0) mmol/L Calcium (8.4-10.2) mg/dL Total Bilirubin (0.2-1.3) mg/dL AST (14-36) U/L ALT (9-52) U/L Alkaline Phosphatase (38-126) U/L Troponin I <0.012 (0.000-0.034) ng/mL Total Protein (6.3-8.2) g/dL Albumin (3.5-5.0) g/dL - Radiology Data Two-view x-ray of the chest is obtained. Report was reviewed in its entirety. Impression by Dr. Montoya shows no focal consolidation. No acute cardiopulmonary process or significant interval change from previous exam. (Raya oBrjas) Disposition Decision to Admit Reason: Admit from EC Decision Date: 12/02/18 Decision Time: 00:28 <Raya Borjas - Last Filed: 12/02/18 01:22> <Young Allen - Last Filed: 12/05/18 08:57> Clinical Impression: COPD with acute exacerbation, Hypoxia Disposition: ADMITTED IP TO THIS HOSP Condition: Serious
--- NOTE | 2018-12-02 00:14 | XR ---
EXAM: XR Chest, 2 Views CLINICAL HISTORY: Pain TECHNIQUE: Frontal and lateral views of the chest. COMPARISON: 12/01/2018 FINDINGS: Lungs: No focal consolidation. Pleural space: No pleural effusion. No pneumothorax. Heart: Unremarkable. No cardiomegaly. Mediastinum: The trachea is midline. The mediastinal contours are normal and stable from previous exam. Bones/joints: Unremarkable. IMPRESSION: No focal consolidation. No acute cardiopulmonary process or significant interval change from previous exam.
[2018-12-02] MEDS ORDERED: IPRATROPIUM-ALBUTEROL 3 ML NEB INHALATION PRN (00:24)
[2018-12-02 02:52] VITALS: BMI 35.7
[2018-12-02] MEDS: methylPREDNISolone SOD SUCCI 125 MG/2 ML VIAL IV SCH ×3 (05:39→17:16)
[2018-12-02] MEDS: IPRATROPIUM-ALBUTEROL 3 ML NEB INHALATION SCH ×4 (08:53→20:29)
[2018-12-02] MEDS: INSULIN ASPART (NovoLOG) 100 UNIT/ML VIAL SQ SCH ×4 (09:48→21:36)
[2018-12-02] MEDS: BENZONATATE 100 MG CAP PO SCH ×3 (09:54→22:03)
[2018-12-02 11:57] LABS: Glucose,Whole Blood 119 mg/dL (75-99)
[2018-12-02] MEDS: NICOTINE 21MG/24HR PATCH TRANSDERM SCH ×2 (14:17→22:03)
[2018-12-02] MEDS: AZITHROMYCIN 500 MG TAB PO SCH (14:19)
[2018-12-02] MEDS: LEVOTHYROXINE 125 MCG TAB PO SCH (14:19)
[2018-12-02] MEDS: RIVAROXABAN 10 MG TAB PO SCH (14:19)
[2018-12-02 17:24] LABS: Glucose,Whole Blood 115 mg/dL (75-99)
--- NOTE | 2018-12-02 18:10 | CONS ---
CONSULTATION DATE OF SERVICE: 12/02/2018. PULMONARY/CRITICAL CARE CONSULT: REASON FOR CONSULTATION: Shortness of breath. A 48-year-old smoker who sees Dr. Ross. She has never seen a lung doctor in the past. She apparently presented to [facility] and was found to be short of breath and had a low saturation on pulse oximetry. For that reason, she was transferred to the emergency room where she was evaluated on December 01. Her complaints include a week's worth or 5 days' worth of shortness of breath, chest tightness, wheezing, cough and chest congestion. She is coughing up a small amount of phlegm. She continues to smoke. She has been smoking for over 40 years. The patient apparently started when she was 8 years of age. She continues to smoke up into the time of her admission. She smokes about a pack a day. Anyway, the patient was feeling quite short of breath. It really scared her. She is currently admitted to the hospital with a COPD exacerbation. She is on oxygen therapy. She was also given breathing treatments, antibiotics and steroids. She does not appear to have had a previous COPD exacerbation like this. Again, she has never seen a lung doctor. Never had pulmonary function testing. She apparently has a child with asthma and uses her child's rescue inhaler and updraft machine from time to time. Again, she has never seen a sugar trucker. There is no formal diagnosis of COPD, but that is what I suspect. MEDICATIONS: Include Levoxyl, Xarelto, Ventolin inhaler, albuterol updrafts, TheraFlu, ibuprofen and Advil Cold and Sinus. ALLERGIES: Denied. PAST MEDICAL HISTORY: Positive for hypothyroidism and also deep venous thrombosis. She apparently has had 2 DVT's. She apparently is on lifelong blood thinners. In addition, she likely has underlying COPD, although she has never been evaluated by a lung doctor. The breathing medications that she takes are basically belonging to her son. SURGICAL HISTORY: Includes a tubal ligation, breast augmentation, tummy tuck and bladder prolapse surgery. SOCIAL HISTORY: Positive for ongoing tobacco use. She smokes more than a pack a day. No alcohol use. She does use marijuana from time to time. FAMILY HISTORY: Unremarkable. OCCUPATIONAL HISTORY: Unremarkable. REVIEW OF SYSTEMS: CONSTITUTIONAL: Negative. NEUROLOGIC: Negative HEENT: Negative. CARDIOVASCULAR: Negative. PULMONARY: Shortness of breath, chest tightness, wheezing, cough, chest congestion, phlegm production. GI: Negative. : Negative. RHEUMATOLOGIC: Negative. IMMUNOLOGIC: Negative. ENDOCRINOLOGIC: Negative. DERMATOLOGIC: Negative. PHYSICAL EXAMINATION: Current vital signs include a temperature which is 98.1, heart rate 74, respiratory rate 16, blood pressure 144/84, mean 104, room air saturation 95%, but a 4 L saturation of 99%. Appears in no acute distress. There is no respiratory distress. No use of accessory muscles, audible wheezing or conversational dyspnea. HEENT examination is grossly unremarkable. Nasal O2 noted. NECK: Supple. Full range of motion. No adenopathy. Neck veins are flat. Cardiovascular examination reveals regular rhythm and rate. S1, S2 normal. There is no S3, S4, or murmur. Heart rate about mid 70s. Lungs reveal diminished breath sounds throughout. There is some expiratory wheezes which are high-pitched. A few scattered rhonchi. Breath sounds are equal bilaterally but diminished. Abdomen is obese. Bowel sounds are heard. Extremities are intact. No cyanosis, clubbing, or edema. Skin without rash. Neurologic examination is brief but nonfocal. Chest x-ray that was done on 12/01 shows no acute disease. LABS: Reviewed. White count 5.6, hemoglobin 16, hematocrit 49.3, platelet count 184. PT, INR, PTT all normal. Sodium, potassium, chloride, CO2 all normal. BUN and creatinine were normal. Liver function tests are normal. Medications have been reviewed and adjusted accordingly. She is currently on oral Zithromax as an antibiotic. She is also receiving albuterol and Atrovent updrafts q.i.d. and p.r.n. as well as Pulmicort 1 mg and formoterol 20 mcg twice a day. We have added Solu-Medrol 60 mg q.6 and a nicotine patch 21 mg a day. The rest of the medications are her usual thyroid and blood thinning medications. ASSESSMENT: 1. Chronic obstructive pulmonary disease exacerbation complicated by purulent tracheobronchitis, without lamine pneumonia. 2. History of hypothyroidism. 3. History of deep venous thrombosis x2. 4. History of ongoing tobacco use and nicotine addiction. 5. Obesity. 6. History of tubal ligation. 7. Status post breast augmentation. 8. History of bladder prolapse surgery. PLAN: The patient will be given appropriate medications including short-acting beta agonist, short-acting muscarinic antagonist, long-acting beta agonist, inhaled corticosteroids, systemic corticosteroids and oral antibiotics. Will also add a nicotine patch 21 mg a day. Additional recommendations and suggestions are forthcoming. Will see her in the office after discharge. Will hiv counselor about the importance of smoking cessation. MMODL / IJN: [id number] /
[2018-12-02] MEDS: FORMOTEROL FUMARATE 20 MCG/2 ML NEBU INHALATION SCH (20:29)
[2018-12-02] MEDS: BUDESONIDE 0.5 MG/2 ML NEBU INHALATION SCH (20:29)
[2018-12-02 21:14] LABS: Glucose,Whole Blood 128 mg/dL (75-99)
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
[2018-12-03] MEDS: methylPREDNISolone SOD SUCCI 125 MG/2 ML VIAL IV SCH ×4 (00:18→17:10)
[2018-12-03] MEDS: LEVOTHYROXINE 125 MCG TAB PO SCH (06:08)
[2018-12-03 06:56] LABS: Glucose,Whole Blood 125 mg/dL (75-99)
[2018-12-03 07:22] LABS: Basophils % (A) 0 %; Eosinophils % (A) 1 %; HCT 51.2 % (34.0-46.0); HGB 16.4 gm/dL (11.4-16.0); Lymphocytes # (A) 1.5 k/uL (1.0-4.8); Lymphocytes % (A) 20 %; MCH 31.3 pg (25.0-35.0); MCV 97.7 fL (80.0-100.0); Mean Platelet Volume 7.8; Monocytes # (A) 0.4 k/uL (0-1.0); Monocytes % (A) 5 %; Neutrophils # (A) 5.1 k/uL (1.3-7.7); Neutrophils % (A) 72 %; Platelet Count 233 k/uL (150-450); RBC 5.24 m/uL (3.80-5.40); RDW 12.6 % (11.5-15.5); WBC 7.1 k/uL (3.8-10.6)
[2018-12-03 07:34] LABS: Anion Gap 5 mmol/L; Blood Urea Nitrogen 11 mg/dL (7-17); Calcium 9.4 mg/dL (8.4-10.2); Carbon Dioxide 37 mmol/L (22-30); Chloride 98 mmol/L (98-107); Glucose 129 mg/dL (74-99); Potassium 5.3 mmol/L (3.5-5.1); Sodium 140 mmol/L (137-145)
[2018-12-03] MEDS: IPRATROPIUM-ALBUTEROL 3 ML NEB INHALATION SCH ×4 (08:12→20:45)
[2018-12-03] MEDS: FORMOTEROL FUMARATE 20 MCG/2 ML NEBU INHALATION SCH ×2 (08:12→20:45)
[2018-12-03] MEDS: BUDESONIDE 0.5 MG/2 ML NEBU INHALATION SCH ×2 (08:14→20:45)
[2018-12-03] MEDS: INSULIN ASPART (NovoLOG) 100 UNIT/ML VIAL SQ SCH ×4 (08:53→21:32)
[2018-12-03] MEDS: RIVAROXABAN 10 MG TAB PO SCH (08:54)
[2018-12-03] MEDS: BENZONATATE 100 MG CAP PO SCH ×3 (08:54→21:32)
[2018-12-03] MEDS: AZITHROMYCIN 500 MG TAB PO SCH (08:54)
[2018-12-03] MEDS: NICOTINE 21MG/24HR PATCH TRANSDERM SCH (08:54)
[2018-12-03 11:48] LABS: Glucose,Whole Blood 124 mg/dL (75-99)
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
--- NOTE | 2018-12-03 14:24 | PN ---
PROGRESS NOTE This is a progress note dated 12/03/2018. This is a 48-year-old female who we saw yesterday in consultation. She sees Dr. Ross. She has never seen a applied computer science professor in the past. She went to [facility] and was found to have low blood saturations. For that reason, she was directed to the emergency room when she was admitted with a diagnosis of COPD exacerbation. She has been smoking many years. She has been smoking 40 years at least a pack a day, maybe more. The patient did not have any evidence of lamine pneumonia on chest x-ray, but was suffering from a purulent tracheobronchitis. Anyway, the patient is feeling a bit better. Off of oxygen though, her saturations dropped down to the low 80s. She will need a couple more days of treatment. Her primary complaints include chest tightness, wheezing, cough, shortness of breath, and phlegm production. No fever or chills. No chest pain or chest discomfort. She is with a couple a lady friends today. Current vital signs are reviewed. Temperature is 98, heart rate 76, respiratory rate 16, blood pressure 133/82, mean 99 and 4 L saturation 94%. Appears in no acute distress. HEENT examination is grossly unremarkable. Mucous membranes are moist. No oral lesions. Neck is supple. Full range of motion. No adenopathy or thyromegaly. Neck veins are flat. Cardiovascular examination reveals regular rhythm rate. Heart rate is 72 beats per minute. S1, S2 normal. There is no S3, S4, or murmur. Lungs reveal some coarse inspiratory and expiratory rhonchi. There is some expiratory wheezes. There is prolongation. Breath sounds are equal bilaterally but diminished throughout. Abdomen is obese. Bowel sounds are heard. Extremities are intact. No cyanosis, clubbing, or edema. Skin without rash. Neurologic examination is brief but nonfocal. LAB DATA: Reviewed. White count 7.1, hemoglobin 16.4, hematocrit 51.2, platelet count 233,000. Sodium 140, potassium 5.3, chloride 98, CO2 of 37. His BUN and creatinine were 11 and 0.66. No new chest x-ray to report. Medications are reviewed. Microbiologic studies are negative. ASSESSMENT: 1. Chronic obstructive pulmonary disease exacerbation, complicated by purulent tracheobronchitis, without lamine pneumonia. 2. History of hypothyroidism. 3. History of DVT x2. 4. History of ongoing tobacco use and nicotine addiction. 5. Obesity. 6. History of tubal ligation. 7. Status post breast augmentation. 8. History of bladder prolapse surgery. PLAN: The patient is currently on all appropriate medications including short-acting beta agonist, short-acting muscarinic antagonist, long-acting beta agonist, inhaled corticosteroids, systemic corticosteroids and oral antibiotics. In addition, we have her on a nicotine patch. She continues to show improvement. I suspect she might be ready for discharge by Tuesday. We counseled about the importance of smoking cessation. She does seem to understand. We will see her in the office post hospitalization for pulmonary function test and staging of her COPD. MMODL / IJN: [id number] /
[2018-12-03 17:18] LABS: Glucose,Whole Blood 130 mg/dL (75-99)
[2018-12-03 20:48] LABS: Glucose,Whole Blood 138 mg/dL (75-99)
[2018-12-04] MEDS: methylPREDNISolone SOD SUCCI 125 MG/2 ML VIAL IV SCH ×3 (00:01→12:46)
[2018-12-04] MEDS: LEVOTHYROXINE 125 MCG TAB PO SCH (05:52)
[2018-12-04] MEDS: FORMOTEROL FUMARATE 20 MCG/2 ML NEBU INHALATION SCH ×2 (07:07→22:28)
[2018-12-04] MEDS: IPRATROPIUM-ALBUTEROL 3 ML NEB INHALATION SCH ×4 (07:07→22:28)
[2018-12-04 07:09] LABS: Glucose,Whole Blood 170 mg/dL (75-99)
[2018-12-04] MEDS: BUDESONIDE 1 MG/2 ML NEBU INHALATION SCH ×2 (07:15→22:28)
[2018-12-04] MEDS: RIVAROXABAN 10 MG TAB PO SCH (08:02)
[2018-12-04] MEDS: BENZONATATE 100 MG CAP PO SCH ×3 (08:02→22:20)
[2018-12-04] MEDS: AZITHROMYCIN 500 MG TAB PO SCH (08:03)
[2018-12-04] MEDS: INSULIN ASPART (NovoLOG) 100 UNIT/ML VIAL SQ SCH ×4 (08:03→22:09)
[2018-12-04] MEDS: NICOTINE 21MG/24HR PATCH TRANSDERM SCH (08:04)
[2018-12-04 08:12] LABS: Basophils % (A) 0 %; Eosinophils % (A) 0 %; HCT 50.9 % (34.0-46.0); HGB 16.1 gm/dL (11.4-16.0); Lymphocytes # (A) 1.6 k/uL (1.0-4.8); Lymphocytes % (A) 16 %; MCH 31.3 pg (25.0-35.0); MCHC 31.7 g/dL (31.0-37.0); MCV 98.9 fL (80.0-100.0); Mean Platelet Volume 8.1; Monocytes # (A) 0.3 k/uL (0-1.0); Monocytes % (A) 3 %; Neutrophils # (A) 7.4 k/uL (1.3-7.7); Neutrophils % (A) 77 %; Platelet Count 242 k/uL (150-450); RBC 5.15 m/uL (3.80-5.40); RDW 12.7 % (11.5-15.5); WBC 9.6 k/uL (3.8-10.6)
[2018-12-04 08:33] LABS: Anion Gap 6 mmol/L; Blood Urea Nitrogen 17 mg/dL (7-17); Calcium 9.3 mg/dL (8.4-10.2); Carbon Dioxide 35 mmol/L (22-30); Chloride 97 mmol/L (98-107); Glucose 143 mg/dL (74-99); Potassium 4.8 mmol/L (3.5-5.1); Sodium 138 mmol/L (137-145)
[2018-12-04 11:35] LABS: Glucose,Whole Blood 127 mg/dL (75-99)
--- NOTE | 2018-12-04 16:44 | P.PN ---
Subjective Progress Note Date: 12/04/18 Principal diagnosis: This is a 48-year-old female patient of Dr. Ross, is admitted to the hospital on 11/22/2018 with complaints of shortness of breath, and hypercapnic respiratory failure. She went to the urgent care clinic, her O2 saturation was quite low and patient was transferred to the emergency department for further evaluation and management. He is been complaining of chest tightness, wheezing and coughing and chest congestion, bringing up small amount of phlegm. She is a current smoker, pack a day for over 40 years. This is her first COPD exacerbation that she was hospitalized with. And patient became quite concerned. Chest x-ray showed no focal consolidation, no acute cardiopulmonary process. Lab work did not show any leukocytosis, admission lab work showed a white blood cell count 5.6, hemoglobin 16.0, coagulation profile was within normal limits, electrolytes and renal profile are within normal limits, troponin was negative 1. Plasma lactic acid is 1.1. On today's exam patient states she is feeling better, still has some scattered rhonchi and wheezing, but overall less chest tightness, and less congestion. She is on 2 L of oxygen, her pulse ox is 93%, no fever or chills, room air pulse ox last night was noted to be at 87%. Blood cultures show no growth, better coverage in the form of Zithromax, and patient is on IV steroids, and nebulized bronchodilators. Objective - Vital Signs Vital signs: Vital Signs Temp 98.2 F 12/04/18 14:04 Pulse 80 12/04/18 14:04 Resp 16 12/03/18 23:37 BP 139/94 12/04/18 14:04 Pulse Ox 94 L 12/04/18 14:04 Intake & Output 12/03/18 12/04/18 12/04/18 18:59 06:59 18:59 Intake Total 592 400 Balance 592 400 Intake: Oral 592 400 Other: Voiding Method Toilet # Voids 1 2 2 # Bowel Movements 1 - Exam GENERAL EXAM: Alert, pleasant, 48-year-old obese white female on 2 L of oxygen, with a pulse ox of 94% comfortable in no apparent distress. HEAD: Normocephalic/atraumatic. EYES: Normal reaction of pupils, equal size. Conjunctiva pink, sclera white. NOSE: Clear with pink turbinates. THROAT: No erythema or exudates. NECK: No masses, no JVD, no thyroid enlargement, no adenopathy. CHEST: No chest wall deformity. Symmetrical expansion. LUNGS: Equal air entry with rhonchi and wheezes CVS: Regular rate and rhythm, normal S1 and S2, no gallops, no murmurs, no rubs ABDOMEN: Soft, nontender. No hepatosplenomegaly, normal bowel sounds, no guarding or rigidity. EXTREMITIES: No clubbing, no edema, no cyanosis, 2+ pulses and upper and lower extremities. MUSCULOSKELETAL: Muscle strength and tone normal. SPINE: No scoliosis or deformity SKIN: No rashes CENTRAL NERVOUS SYSTEM: Alert and oriented -3. No focal deficits, tone is normal in all 4 extremities. PSYCHIATRIC: Alert and oriented -3. Appropriate affect. Intact judgment and insight. - Labs CBC & Chem 7: 12/04/18 07:25 12/04/18 07:25 Labs: Abnormal Lab Results - Last 24 Hours (Table) 12/03/18 12/03/18 12/04/18 Range/Units 17:05 20:37 06:57 Hgb (11.4-16.0) gm/dL Hct (34.0-46.0) % Chloride (98-107) mmol/L Carbon Dioxide (22-30) mmol/L Glucose (74-99) mg/dL POC Glucose (mg/dL) 130 H 138 H 170 H (75-99) mg/dL 12/04/18 12/04/18 12/04/18 Range/Units 07:25 07:25 11:24 Hgb 16.1 H (11.4-16.0) gm/dL Hct 50.9 H (34.0-46.0) % Chloride 97 L (98-107) mmol/L Carbon Dioxide 35 H (22-30) mmol/L Glucose 143 H (74-99) mg/dL POC Glucose (mg/dL) 127 H (75-99) mg/dL Microbiology - Last 24 Hours (Table) 12/01/18 20:04 Blood Culture - Preliminary Blood No Growth after 48 hours Assessment and Plan Plan: Assessment #1. Acute exacerbation of chronic obstructive pulmonary disease comfortable. Tracheal bronchitis without evidence of lamine pneumonia #2. History of hypothyroidism #3. History of DVT on chronic anticoagulation in the form of Xarelto #4. History of ongoing tobacco use, patient carries [id number] smoking hi story #5. Morbid obesity #6. History of tubal ligation #7. History of bladder prolapse surgery Plan: Patient is improving, still has some rhonchi and wheezing, but improving. Continue nebulized bronchodilators, IV corticosteroids, oral antibiotics, smoking cessation counseling was reinforced. Anticipate further improvement, possible discharge in next 24 hours. I performed a history & physical examination of the patient and discussed their management with my nurse practitioner, Heidi Art. I reviewed the nurse practitioner's note and agree with the documented findings and plan of care. Lung sounds are positive for scattered wheezes and rhonchi. The findings and the impression was discussed with the patient. I attest to the documentation by the nurse practitioner. Time with Patient: Less than 30
[2018-12-04 16:57] LABS: Glucose,Whole Blood 156 mg/dL (75-99)
[2018-12-04] MEDS ORDERED: MELATONIN 3 MG TABLET PO SCH (21:45)
[2018-12-04 21:52] LABS: Glucose,Whole Blood 108 mg/dL (75-99)
[2018-12-04] MEDS: methylPREDNISolone SOD SUCCI 40 MG/ML 1 ML VIAL IV SCH (22:21)
[2018-12-05] MEDS: LEVOTHYROXINE 125 MCG TAB PO SCH (06:06)
--- NOTE | 2018-12-05 06:56 | PN ---
PROGRESS NOTE DATE OF SERVICE: 12/04/2018 PRESENTING COMPLAINT: Short of breath, wheezing. INTERVAL HISTORY: The patient admitted with COPD exacerbation who is a smoker. Wheezing is somewhat better. Still got a dry cough. Started to eat better. Has got oxygen on. REVIEW OF SYSTEMS: Done for constitutional, cardiovascular GI, pulmonary; relevant findings as above. CURRENT MEDICATIONS: Current medications are reviewed that include DuoNeb, IV Solu-Medrol. PHYSICAL EXAMINATION: On examination, temperature 98.2, pulse 80, respirations 22, blood pressure 139/94, pulse ox 94% on 2 L. GENERAL APPEARANCE: Sitting up, awake. EYES: Pupils equal. Conjunctivae normal. NECK: JVD not raised. Mass not palpable. RESPIRATORY: Effort increased. LUNGS: Improved air entry. Decreased wheezing. CARDIOVASCULAR: First and second sounds normal. No edema. ABDOMEN: Soft, nontender. Liver and spleen not palpable. PSYCHIATRY: Alert and oriented x3. Mood and affect normal. INVESTIGATIONS: White count 9.6, hemoglobin 16.1. Potassium 4.8. BUN 17, creatinine 0.65. Accu-Cheks are noted. ASSESSMENT: 1. Acute chronic obstructive pulmonary disease exacerbation in a current cigarette smoker. 2. Chronic nicotine dependence. Patient is a cigarette smoker. 3. Obesity; body mass index 35.7. 4. Acute tracheobronchitis. 5. Hypothyroidism. 6. Chronic deep venous thrombosis for which patient is on Xarelto. PLAN: Patient is overall improving. I spoke to the nurse to encourage the patient to ambulate. We will check her oxygen for discharge tomorrow. SMOKING CESSATION COUNSELING: This was done with the patient. The patient has a nicotine patch in place. More than 3 minutes was spent on this aspect of the case. MMODL / IJN: [id number] /
[2018-12-05 07:37] LABS: Glucose,Whole Blood 114 mg/dL (75-99)
[2018-12-05 07:52] VITALS: TEMP 98
[2018-12-05] MEDS: FORMOTEROL FUMARATE 20 MCG/2 ML NEBU INHALATION SCH (08:01)
[2018-12-05] MEDS: IPRATROPIUM-ALBUTEROL 3 ML NEB INHALATION SCH ×3 (08:01→15:53)
[2018-12-05] MEDS: BUDESONIDE 1 MG/2 ML NEBU INHALATION SCH (08:01)
[2018-12-05] MEDS: INSULIN ASPART (NovoLOG) 100 UNIT/ML VIAL SQ SCH ×2 (08:25→13:24)
[2018-12-05] MEDS: RIVAROXABAN 10 MG TAB PO SCH (08:36)
[2018-12-05] MEDS: BENZONATATE 100 MG CAP PO SCH (08:36)
[2018-12-05] MEDS: methylPREDNISolone SOD SUCCI 40 MG/ML 1 ML VIAL IV SCH (08:37)
[2018-12-05] MEDS: NICOTINE 21MG/24HR PATCH TRANSDERM SCH (08:37)
[2018-12-05] MEDS: AZITHROMYCIN 500 MG TAB PO SCH (11:15)
[2018-12-05 11:58] LABS: Glucose,Whole Blood 137 mg/dL (75-99)
[2018-12-05 15:15] VITALS: BP 133/84; RESP 16
[2018-12-05 16:05] VITALS: PULSE 78
--- NOTE | 2018-12-05 16:14 | P.PN ---
Subjective Progress Note Date: 12/05/18 Principal diagnosis: This is a 48-year-old female patient of Dr. Ross, is admitted to the hospital on 11/22/2018 with complaints of shortness of breath, and hypercapnic respiratory failure. She went to the urgent care clinic, her O2 saturation was quite low and patient was transferred to the emergency department for further evaluation and management. He is been complaining of chest tightness, wheezing and coughing and chest congestion, bringing up small amount of phlegm. She is a current smoker, pack a day for over 40 years. This is her first COPD exacerbation that she was hospitalized with. And patient became quite concerned. Chest x-ray showed no focal consolidation, no acute cardiopulmonary process. Lab work did not show any leukocytosis, admission lab work showed a white blood cell count 5.6, hemoglobin 16.0, coagulation profile was within normal limits, electrolytes and renal profile are within normal limits, troponin was negative 1. Plasma lactic acid is 1.1. On today's exam patient states she is feeling better, still has some scattered rhonchi and wheezing, but overall less chest tightness, and less congestion. She is on 2 L of oxygen, her pulse ox is 93%, no fever or chills, room air pulse ox last night was noted to be at 87%. Blood cultures show no growth, better coverage in the form of Zithromax, and patient is on IV steroids, and nebulized bronchodilators. On 12/05/2018 patient seen in follow-up on medical surgical floor. She is resting comfortably in bed, she is in no acute distress, she is on 2 L of oxygen, with a pulse ox of 95%, no fever or chills, hemodynamically stable. Blood culture showed no growth. Lung sounds reveal only normal end expiratory wheezing, on forced exhale maneuver, overall patient has improved as of being bronchospastic and dyspneic, we will obtain home oxygen assessment, no fever or chills, vital signs have been stable Objective - Vital Signs Vital signs: Vital Signs Temp 98.0 F 12/05/18 15:00 Pulse 78 12/05/18 16:04 Resp 16 12/05/18 15:00 BP 133/84 12/05/18 15:00 Pulse Ox 95 12/05/18 15:00 Intake & Output 12/04/18 12/05/18 12/05/18 18:59 06:59 18:59 Intake Total 500 800 Balance 500 800 Intake: Oral 500 800 Other: Voiding Method Toilet # Voids 2 2 2 # Bowel Movements 0 - Exam GENERAL EXAM: Alert, pleasant, 48-year-old obese white female on 2 L of oxygen, with a pulse ox of 94% comfortable in no apparent distress. HEAD: Normocephalic/atraumatic. EYES: Normal reaction of pupils, equal size. Conjunctiva pink, sclera white. NOSE: Clear with pink turbinates. THROAT: No erythema or exudates. NECK: No masses, no JVD, no thyroid enlargement, no adenopathy. CHEST: No chest wall deformity. Symmetrical expansion. LUNGS: Equal air entry with rhonchi and wheezes CVS: Regular rate and rhythm, normal S1 and S2, no gallops, no murmurs, no rubs ABDOMEN: Soft, nontender. No hepatosplenomegaly, normal bowel sounds, no guarding or rigidity. EXTREMITIES: No clubbing, no edema, no cyanosis, 2+ pulses and upper and lower extremities. MUSCULOSKELETAL: Muscle strength and tone normal. SPINE: No scoliosis or deformity SKIN: No rashes CENTRAL NERVOUS SYSTEM: Alert and oriented -3. No focal deficits, tone is normal in all 4 extremities. PSYCHIATRIC: Alert and oriented -3. Appropriate affect. Intact judgment and insight. - Labs CBC & Chem 7: 12/04/18 07:25 12/04/18 07:25 Labs: Abnormal Lab Results - Last 24 Hours (Table) 12/04/18 12/04/18 12/05/18 Range/Units 16:55 21:41 07:14 POC Glucose (mg/dL) 156 H 108 H 114 H (75-99) mg/dL 12/05/18 Range/Units 11:46 POC Glucose (mg/dL) 137 H (75-99) mg/dL Microbiology - Last 24 Hours (Table) 12/01/18 20:04 Blood Culture - Preliminary Blood No Growth after 72 hours Assessment and Plan Plan: Assessment #1. Acute exacerbation of chronic obstructive pulmonary disease comfortable. Tracheobronchitis without evidence of lamine pneumonia #2. History of hypothyroidism #3. History of DVT on chronic anticoagulation in the form of Xarelto #4. History of ongoing tobacco use, patient carries [id number] smoking history #5. Morbid obesity #6. History of tubal ligation #7. History of bladder prolapse surgery Plan: Patient seems to improve, no acute events overnight, less back with spastic and dyspneic. Obtain home oxygen assessment, from pulmonary perspective patient is stable for discharge home today, we'll need follow-up with Dr. Ramos in the office in 7-10 days I performed a history & physical examination of the patient and discussed their management with my nurse practitioner, Heidi Art. I reviewed the nurse practitioner's note and agree with the documented findings and plan of care. Lung sounds are positive for scattered wheezes and rhonchi. The findings and the impression was discussed with the patient. I attest to the documentation by the nurse practitioner. Time with Patient: Less than 30
[2018-12-05 17:01] LABS: Glucose,Whole Blood 112 mg/dL (75-99)
--- NOTE | 2018-12-06 09:54 | DS ---
DISCHARGE SUMMARY DATE OF ADMISSION: 12/02/2018 DATE OF DISCHARGE: 12/05/2018 FINAL DIAGNOSES: 1. Acute severe chronic obstructive pulmonary disease exacerbation in a current smoker. 2. Chronic nicotine dependence. Patient is a cigarette smoker. 3. Obesity, body mass index 35.7. 4. Acute tracheobronchitis. 5. Hypothyroidism. 6. Chronic deep venous thrombosis for which patient is on Xarelto. HOSPITAL COURSE: This patient presented with severe COPD exacerbation in a smoker. Doing much better at the time of discharge. The patient's pulse ox was dropping down to 82%; hence, patient for oxygen. Care was discussed with the patient today in detail. Again, discussed about smoking cessation. CONSULTATION: Dr. Ramos/Dr. Kate from Pulmonary. PHYSICAL EXAMINATION: Temperature 98, pulse 67, respirations 16, blood pressure 133/84, pulse ox did drop down to about 85% on room air. LUNGS: Decreased breath sounds, minimal wheezing. Discussion and discharge planning more than 35 minutes. DISCHARGE MEDICATIONS: 1. Levoxyl 125 mcg a day. 2. Xarelto 10 mg a day. 3. ProAir 2 puffs q.6 p.r.n. 4. Zithromax 500 mg p.o. a day for 3 days. 5. DuoNeb t.i.d. 6. Melatonin 3 mg q.h.s. 7. Nicotine 21 mg patch. 8. Prednisone taper. Follow up with Dr. Ross in 3 days. Follow up with Dr. Ramos in 1 week. Home oxygen 2 L. Discussion and discharge planning more than 35 minutes. MMODL / IJN: [id number] /
--- NOTE | 2018-12-07 09:15 | CDI ---
Documentation Clarification Form Date: 12/07/2018 8:02:00 AM From: Quin Garay Pastora Rogers, [employer] Hours-8:30 am & 5 pm M-F Admit Date: 12/02/2018 12:32:00 AM Patient Name: Meagan Calderon Visit Number: [id number] Discharge Date: 12/05/2018 5:30:00 PM ATTENTION: The Clinical Documentation Specialists (CDI) and [facility] Coding Staff appreciate your assistance in clarifying documentation. Please respond to the clarification below the line at the bottom and electronically sign. The CDI & [facility] Coding staff will review the response and follow-up if needed. Please note: Queries are made part of the Legal Health Record. If you have any questions, please contact the author of this message via ITS. Dr. Renato Laguna Hypercapnic respiratory failure is documented in the PNs. History/Risk Factors: COPD Exac, A Bronchitis, Hypoxemia, Obesity, Smoker Vital signs: O2 Sat 84, 92, 84- RR 20, 32, 13 Treatment: Nasal Cannula 2lpm Breathing tx: Nebulizer In your professional opinion, can you please clarify if these findings signify one of the following conditions? Acuity Acute Respiratory Failure Chronic Respiratory Failure Acute on Chronic Respiratory Failure Respiratory Distress Respiratory Insufficiency Other Diagnosis, please specify Unable to determine acute hypoxic respiratory failure due to copd exacerbation MTDD
== END 2018-12-05 17:30 | disposition home or self-care (01) | DRG 190 ==
LOC: EC 21:15 → 4SSUR 12-02 00:32
PROVIDERS: ADMIT Hospitalist; ATTEND Hospitalist
DX: J44.1 Chronic obstructive pulmonary disease with (acute) exacerbation (principal); J96.01 Acute respiratory failure with hypoxia; I82.509 Chronic embolism and thrombosis of unspecified deep veins of unspecified lower extremity; E66.01 Morbid (severe) obesity due to excess calories; E87.5 Hyperkalemia; F17.210 Nicotine dependence, cigarettes, uncomplicated; J44.0 Chronic obstructive pulmonary disease with (acute) lower respiratory infection; J20.9 Acute bronchitis, unspecified; E03.9 Hypothyroidism, unspecified; Z71.6 Tobacco abuse counseling; Z68.35 Body mass index [BMI] 35.0-35.9, adult; Z79.890 Hormone replacement therapy; Z79.01 Long term (current) use of anticoagulants; Z79.899 Other long term (current) drug therapy; Z98.51 Tubal ligation status
CPT/HCPCS: 36415; 71046; 80048; 80053; 83605; 84484; 85025; 85610; 85730; 87040; 93005; 94640; 94644; 94664; 94760; 96365; 96366; 99285

== ENCOUNTER 2019-09-19 17:56 | Emergency (ER) | payer OTHER ==
[2019-09-19] MEDS ORDERED: methylPREDNISolone SOD SUCCI 125 MG/2 ML VIAL IV STA (18:20)
[2019-09-19] MEDS ORDERED: SODIUM CHLORIDE 0.9% 500 ML 500 ML IV STA (18:20)
[2019-09-19] MEDS ORDERED: ALBUTEROL NEBULIZED (CONC) 5 MG, SODIUM CHLORIDE 0.9% NEBULIZ 3 ML INHALATION STA ×2 (18:21)
[2019-09-19] MEDS ORDERED: IPRATROPIUM 0.5 MG/2.5 ML NEBU INHALATION STA (18:21)
[2019-09-19 19:06] LABS: Basophils % (A) 0 %; Eosinophils # (A) 0.2 k/uL (0-0.7); Eosinophils % (A) 2 %; HCT 46.8 % (34.0-46.0); HGB 15.2 gm/dL (11.4-16.0); Lymphocytes # (A) 1.1 k/uL (1.0-4.8); Lymphocytes % (A) 11 %; MCH 31.1 pg (25.0-35.0); MCHC 32.5 g/dL (31.0-37.0); MCV 95.6 fL (80.0-100.0); Monocytes # (A) 0.5 k/uL (0-1.0); Monocytes % (A) 5 %; Neutrophils # (A) 7.4 k/uL (1.3-7.7); Neutrophils % (A) 80 %; Platelet Count 195 k/uL (150-450); RBC 4.89 m/uL (3.80-5.40); RDW 12.6 % (11.5-15.5); WBC 9.2 k/uL (3.8-10.6)
[2019-09-19 19:12] LABS: ALT 14 U/L (4-34); AST 26 U/L (14-36); African American GFR (CKD) >90 (>60 ml/min/1.73 sqM); Albumin 4.3 g/dL (3.5-5.0); Alkaline Phosphatase 61 U/L (38-126); Anion Gap 5 mmol/L; Blood Urea Nitrogen 16 mg/dL (7-17); Calcium 9.4 mg/dL (8.4-10.2); Carbon Dioxide 29 mmol/L (22-30); Chloride 103 mmol/L (98-107); Glucose 104 mg/dL (74-99); Non-African American GFR(CKD) 81 (>60 ml/min/1.73 sqM); Sodium 137 mmol/L (137-145); Total Bilirubin 0.6 mg/dL (0.2-1.3); Total Protein 6.9 g/dL (6.3-8.2)
--- NOTE | 2019-09-19 19:12 | ED ---
General Adult HPI - General Chief complaint: Shortness of Breath Stated complaint: DVT lt calf Time Seen by Provider: 09/19/19 18:05 Source: patient Mode of arrival: ambulatory Limitations: no limitations - History of Present Illness Initial comments: 49-year-old female patient presents the emergency department today for evaluation of shortness of breath and pain and swelling to her left calf. Patient has history of DVT, last one 2016. Chest external toe. Patient states she's been sick since yesterday with upper respiratory symptoms including nasal congestion, sore throat, and cough. Patient states she is coughing up a small amount of sputum. States today she is having increased difficulty in breathing. She is reporting some chest tightness and wheezing. States that her cat chewed a hole through her breathing treatment tubing so has been unable to do breathing treatments today. States she has felt feverish and chilled. She is also re porting pain, swelling, and mass to the left calf. Patient denies any recent rash, abdominal pain, nausea, vomiting, diarrhea, constipation, back pain, numbness, tingling, dizziness, weakness, hematuria, dysuria, urinary urgency, urinary frequency, headache, visual changes, or any other complaints. - Related Data Home Medications Medication Instructions Recorded Confirmed Levothyroxine Sodium [Levoxyl] 125 mcg PO DAILY 01/28/18 12/01/18 Rivaroxaban [Xarelto] 10 mg PO DAILY 10/03/18 12/01/18 Albuterol Sulfate [Proair Hfa] 2 puff INHALATION RT-Q6H PRN 12/01/18 12/01/18 Previous Rx's Medication Instructions Recorded Azithromycin [Zithromax] 500 mg PO DAILY 3 Days #3 tab 12/05/18 Ipratropium-Albuterol Nebulize 3 ml INHALATION TID 30 Days #3 box 12/05/18 [Duoneb 0.5 mg-3 mg/3 ml Soln] Melatonin 3 mg PO HS tablet 12/05/18 Nicotine 21Mg/24Hr Patch [Habitrol] 1 patch TRANSDERM DAILY #30 patch 12/05/18 predniSONE 10 mg PO DIRECTED 12 Days #30 12/05/18 tab Azithromycin 250 mg PO DAILY 4 Days #4 tab 09/19/19 predniSONE 50 mg PO DAILY #5 tablet 09/19/19 Allergies Allergy/AdvReac Type Severity Reaction Status Date / Time No Known Allergies Allergy Verified 09/19/19 18:00 Review of Systems ROS Statement: Those systems with pertinent positive or pertinent negative responses have been documented in the HPI. ROS Other: All systems not noted in ROS Statement are negative. Past Medical History Past Medical History: COPD, Deep Vein Thrombosis (DVT), Thyroid Disorder Additional Past Medical History / Comment(s): history of 2 DVT in left leg, History of Any Multi-Drug Resistant Organisms: None Reported Past Surgical History: Tubal Ligation Additional Past Surgical History / Comment(s): breast augmentation, "tummy tuck", "bladder prolapse surgery" Past Psychological History: No Psychological Hx Reported Smoking Status: Current every day smoker Past Alcohol Use History: Rare Past Drug Use History: Marijuana General Exam Limitations: no limitations General appearance: alert, in no apparent distress, other (This is a well- developed, well-nourished adult female patient in no acute distress. Vital signs upon presentation are temperature 99.2 degrees and echo pulse 92, respirations 24, blood pressure 158/114, pulse ox 94% on room air.) Eye exam: Present: normal appearance, PERRL, EOMI. Absent: scleral icterus, conjunctival injection, periorbital swelling ENT exam: Present: normal exam, normal oropharynx, mucous membranes moist, TM's normal bilaterally Respiratory exam: Present: wheezes (Inspiratory and expiratory wheezing noted in the posterior lung vergara), other (Pursed lip breathing). Absent: normal lung sounds bilaterally, respiratory distress, rales, rhonchi, stridor Cardiovascular Exam: Present: regular rate, normal rhythm, normal heart sounds. Absent: systolic murmur, diastolic murmur, rubs, gallop, clicks GI/Abdominal exam: Present: soft, normal bowel sounds. Absent: distended, tenderness, guarding, rebound, rigid Neurological exam: Present: alert, oriented X3, CN II-XII intact Psychiatric exam: Present: normal affect, normal mood Skin exam: Present: warm, dry, intact, normal color. Absent: rash Course Vital Signs 09/19/19 09/19/19 09/19/19 17:57 18:38 19:34 Temperature 99.2 F Pulse Rate 92 96 79 Respiratory 24 Rate Blood Pressure 158/114 O2 Sat by Pulse 94 L Oximetry 09/19/19 09/19/19 19:40 19:50 Temperature Pulse Rate 79 79 Respiratory Rate Blood Pressure O2 Sat by Pulse Oximetry EKG Findings - EKG Comments: EKG Findings:: EKG obtained at 1836 shows normal sinus rhythm with a ventricular rate of 73, DC interval 140, QRS duration 86, QT 362, QTc 398. No evidence of ST elevation or depression. Medical Decision Making - Medical Decision Making 49-year-old female patient presents to the emergency department today for evaluation of shortness of breath, cough, and pain and swelling to the left calf. Physical examination did reveal a mass and tenderness over the left proximal calf. She did have inspiratory and expiratory wheezing noted in the posterior lung vergara. Oxygen saturation 94% on room air upon arrival. She did receive a breathing treatment and IV steroids here in the emergency department. She does report mild improvement of symptoms. She is now 85% on room air. She does have a home oxygen. CT was negative for pulmonary embolism. Ultrasound of the left leg was positive for superficial venous thrombophlebitis. I did discuss findings and results with the patient. I did offer admission for COPD exacerbation, she would like to attempt outpatient treatment first. She does have oxygen, nebulizer, and access to medications. She is instructed to follow-up with her primary care physician for recheck in 1-2 days. Return parameters were discussed in detail. She verbalizes understanding and agrees with this plan. - Lab Data Result diagrams: 09/19/19 18:51 09/19/19 18:51 Lab Results 09/19/19 09/19/19 09/19/19 Range/Units 18:46 18:51 18:51 WBC 9.2 (3.8-10.6) k/uL RBC 4.89 (3.80-5.40) m/uL Hgb 15.2 (11.4-16.0) gm/dL Hct 46.8 H (34.0-46.0) % MCV 95.6 (80.0-100.0) fL MCH 31.1 (25.0-35.0) pg MCHC 32.5 (31.0-37.0) g/dL RDW 12.6 (11.5-15.5) % Plt Count 195 (150-450) k/uL Neutrophils % 80 % Lymphocytes % 11 % Monocytes % 5 % Eosinophils % 2 % Basophils % 0 % Neutrophils # 7.4 (1.3-7.7) k/uL Lymphocytes # 1.1 (1.0-4.8) k/uL Monocytes # 0.5 (0-1.0) k/uL Eosinophils # 0.2 (0-0.7) k/uL Basophils # 0.0 (0-0.2) k/uL PT (9.0-12.0) sec INR (<1.2) APTT (22.0-30.0) sec Sodium 137 (137-145) mmol/L Potassium 5.0 (3.5-5.1) mmol/L Chloride 103 (98-107) mmol/L Carbon Dioxide 29 (22-30) mmol/L Anion Gap 5 mmol/L BUN 16 (7-17) mg/dL Creatinine 0.84 (0.52-1.04) mg/dL Est GFR (CKD-EPI)AfAm >90 (>60 ml/min/1.73 sqM) Est GFR (CKD-EPI)NonAf 81 (>60 ml/min/1.73 sqM) Glucose 104 H (74-99) mg/dL Calcium 9.4 (8.4-10.2) mg/dL Total Bilirubin 0.6 (0.2-1.3) mg/dL AST 26 (14-36) U/L ALT 14 (4-34) U/L Alkaline Phosphatase 61 (38-126) U/L Troponin I (0.000-0.034) ng/mL Total Protein 6.9 (6.3-8.2) g/dL Albumin 4.3 (3.5-5.0) g/dL Influenza Type A RNA Not Detected (Not Detectd) Influenza Type B (PCR) Not Detected (Not Detectd) 09/19/19 09/19/19 Range/Units 18:51 18:51 WBC (3.8-10.6) k/uL RBC (3.80-5.40) m/uL Hgb (11.4-16.0) gm/dL Hct (34.0-46.0) % MCV (80.0-100.0) fL MCH (25.0-35.0) pg MCHC (31.0-37.0) g/dL RDW (11.5-15.5) % Plt Count (150-450) k/uL Neutrophils % % Lymphocytes % % Monocytes % % Eosinophils % % Basophils % % Neutrophils # (1.3-7.7) k/uL Lymphocytes # (1.0-4.8) k/uL Monocytes # (0-1.0) k/uL Eosinophils # (0-0.7) k/uL Basophils # (0-0.2) k/uL PT 10.8 (9.0-12.0) sec INR 1.0 (<1.2) APTT 28.3 (22.0-30.0) sec Sodium (137-145) mmol/L Potassium (3.5-5.1) mmol/L Chloride (98-107) mmol/L Carbon Dioxide (22-30) mmol/L Anion Gap mmol/L BUN (7-17) mg/dL Creatinine (0.52-1.04) mg/dL Est GFR (CKD-EPI)AfAm (>60 ml/min/1.73 sqM) Est GFR (CKD-EPI)NonAf (>60 ml/min/1.73 sqM) Glucose (74-99) mg/dL Calcium (8.4-10.2) mg/dL Total Bilirubin (0.2-1.3) mg/dL AST (14-36) U/L ALT (4-34) U/L Alkaline Phosphatase (38-126) U/L Troponin I <0.012 (0.000-0.034) ng/mL Total Protein (6.3-8.2) g/dL Albumin (3.5-5.0) g/dL Influenza Type A RNA (Not Detectd) Influenza Type B (PCR) (Not Detectd) - Radiology Data Radiology results: report reviewed, image reviewed CT chest angiography for PE was obtained. Report was reviewed in its entirety. Impression by Dr. Serra shows no evidence of pulmonary embolism. Venous Doppler duplex of the left lower extremity is obtained. Report was reviewed in its entirety. Impression by Dr. Serra shows no evidence of DVT to the left leg. There is superficial vein in the upper calf with thrombus. Is no evidence of an abscess. Disposition Clinical Impression: COPD exacerbation, Acute superficial venous thrombosis of left lower extremity Disposition: HOME SELF-CARE Condition: Good Instructions (If sedation given, give patient instructions): Superficial Thrombophlebitis (ED), COPD (Chronic Obstructive Pulmonary Disease) (ED) Additional Instructions: Apply warm compresses to the left calf. Continue taking xarelto. Take Tylenol for pain control. Do breathing treatments every 4 hours. Wear your oxygen at all times. Complete antibiotic and steroid prescription in full. Follow-up with your primary care physician for recheck in 1-2 days. Return to the emergency department immediately for any new, worsening, or concerning symptoms. Prescriptions: Azithromycin 250 mg PO DAILY 4 Days #4 tab predniSONE 50 mg PO DAILY #5 tablet Is patient prescribed a controlled substance at d/c from ED?: No Referrals: Fitz Ross MD [Primary Care Provider] - 1-2 days Time of Disposition: 20:53
[2019-09-19 19:19] LABS: Partial Thromboplastin Time 28.3 sec (22.0-30.0); Prothrombin Time 10.8 sec (9.0-12.0)
--- NOTE | 2019-09-19 19:30 | US ---
EXAMINATION TYPE: US venous doppler duplex LE LT DATE OF EXAM: 09/19/2019 7:13 PM COMPARISON: NONE CLINICAL HISTORY: Calf pain/swelling/hx dvt. Superficial lump left upper calf with redness. patient o n Xarelto SIDE PERFORMED: Left TECHNIQUE: The lower extremity deep venous system is examined utilizing real time linear array sonog papo with graded compression, doppler sonography and color-flow sonography. VESSELS IMAGED: External Iliac Vein (EIV) Common Femoral Vein Deep Femoral Vein Greater Saphenous Vein * Femoral Vein Popliteal Vein Small Saphenous Vein * Proximal Calf Veins (* superficial vessels) Left Leg: No evidence of DVT. Within area of lump and redness, left upper calf, superficial thrombus noted IMPRESSION: No evidence of deep venous thrombosis in the left leg. There is superficial vein in the u pper calf with thrombus. There is no evidence of an abscess.
[2019-09-19] MEDS ORDERED: ALBUTEROL NEBULIZED 2.5 MG/3 ML INHALATION STA (19:32)
[2019-09-19 19:37] VITALS: PULSE 79
--- NOTE | 2019-09-19 20:39 | CT ---
EXAMINATION TYPE: CT chest angio for PE DATE OF EXAM: 09/19/2019 COMPARISON: None HISTORY: SOB CT DLP: 621.4 mGycm Automated exposure control for dose reduction was used. CONTRAST: Performed with IV Contrast, patient injected with 70 mL of Isovue 370. There are 3-D post processed images. The lungs are clear of consolidation. There is no evidence of a pulmonary mass. There is no pleural e ffusion. There is no mediastinal adenopathy. There are no hilar masses. There are small bronchial lym ph nodes less than 1 cm. Heart size is fairly normal. There is no pericardial effusion. There is no p leural effusion. Thoracic aorta is intact without evidence of dissection. Ascending aorta measures 3.5 cm. There is normal contrast opacification of the pulmonary arteries. I see no filling defect. There are some spondylotic changes in the thoracic spine. I see no compression fracture. Bony thorax appears intact. There are bilateral breast implants. Upper abdominal soft tissues are intact. IMPRESSION: No evidence of pulmonary embolism.
[2019-09-19] MEDS ORDERED: AZITHROMYCIN 500 MG TAB PO STA (20:50)
[2019-09-19 21:00] VITALS: BP 127/64; RESP 18; TEMP 100.1
== END 2019-09-19 21:09 | disposition home or self-care (01) ==
LOC: EC 17:56
DX: J44.1 Chronic obstructive pulmonary disease with (acute) exacerbation (principal); I82.812 Embolism and thrombosis of superficial veins of left lower extremity; E07.9 Disorder of thyroid, unspecified; F17.200 Nicotine dependence, unspecified, uncomplicated; Z79.890 Hormone replacement therapy; Z79.01 Long term (current) use of anticoagulants; Z79.899 Other long term (current) drug therapy; Z53.8 Procedure and treatment not carried out for other reasons
CPT/HCPCS: 36415; 94640 ×2; 80053; 84484; 85025; 85610; 85730; 87040; 87502; 93971; 71275; 99285; 96374; 96361 ×2; J2930; Q9967

== ENCOUNTER 2022-09-15 16:28 | Emergency (ER) | payer BC, OTHER ==
[2022-09-15 16:37] VITALS: BP 130/92; PULSE 84; RESP 20; TEMP 97
--- NOTE | 2022-09-15 17:17 | US ---
EXAMINATION TYPE: US venous doppler duplex LE LT DATE OF EXAM: 09/15/2022 5:02 PM COMPARISON: US CLINICAL HISTORY: swelling to left lower leg hx dvt. Pt states pain to left calf and lower leg, curre ntly on blood thinners SIDE PERFORMED: Left TECHNIQUE: The lower extremity deep venous system is examined utilizing real time linear array sonog papo with graded compression, doppler sonography and color-flow sonography. VESSELS IMAGED: Common Femoral Vein Deep Femoral Vein Greater Saphenous Vein * Femoral Vein Popliteal Vein Small Saphenous Vein * Proximal Calf Veins (* superficial vessels) Left Leg: Negative for DVT, however SVT is visualized within left lesser saph vein right at the junc tion (1-2mm) of the left popliteal vein, extending down left calf IMPRESSION: 1. No evidence for left lower extremity deep vein thrombosis. 2. Superficial thrombophlebitis of the lesser saphenous vein and extending into the calf.
[2022-09-15 18:26] LABS: Basophils # (A) 0.1 k/uL (0-0.2); Basophils % (A) 1 %; Eosinophils # (A) 0.3 k/uL (0-0.7); Eosinophils % (A) 2 %; HCT 48.4 % (34.0-46.0); HGB 16.5 gm/dL (11.4-16.0); Lymphocytes # (A) 4.2 k/uL (1.0-4.8); Lymphocytes % (A) 41 %; MCH 31.9 pg (25.0-35.0); MCHC 34.2 g/dL (31.0-37.0); MCV 93.2 fL (80.0-100.0); Mean Platelet Volume 9.4; Monocytes # (A) 0.6 k/uL (0-1.0); Monocytes % (A) 6 %; Neutrophils # (A) 5.2 k/uL (1.3-7.7); Neutrophils % (A) 50 %; Platelet Count 241 k/uL (150-450); RBC 5.19 m/uL (3.80-5.40); RDW 13.3 % (11.5-15.5); WBC 10.4 k/uL (3.8-10.6)
[2022-09-15 18:43] LABS: Albumin 4.5 g/dL (3.5-5.0); Calcium 9.6 mg/dL (8.4-10.2); Potassium 4.1 mmol/L (3.5-5.1); Total Bilirubin 0.4 mg/dL (0.2-1.3); Total Protein 7.2 g/dL (6.3-8.2)
--- NOTE | 2022-09-15 19:17 | CT ---
EXAMINATION TYPE: CT chest angio for PE CT DLP: 580.9 mGycm, Automated exposure control for dose reduction was used. DATE OF EXAM: 09/15/2022 6:37 PM COMPARISON: CT 09/19/2019. CLINICAL INDICATION:Female, 52 years old with history of Difficulty breathing; TONI. hx of DVT in legs . TECHNIQUE/CONTRAST: CTA scan of the thorax is performed with IV Contrast, patient injected with 78 mL of Isovue 370, pulm onary embolism protocol. MIP images are created and reviewed. FINDINGS: Pulmonary Artery: There is no evidence for a filling defect within the pulmonary vasculature to sugge st acute pulmonary embolism. The pulmonary artery is of normal size. Lungs/Pleura: No evidence of focal consolidation, pleural effusion or pneumothorax. Left lower lobe 6 mm pulmonary nodule not definitively seen on prior Airway: Large airways are patent. Heart: The heart is mildly enlarged for size. Vasculature: No evidence of aortic aneurysm. Mediastinum: No gross evidence of adenopathy. Musculoskeletal: No acute osseous abnormalities Soft Tissues: Bilateral breast implants. Implants appear intact. Lower neck: No significant findings. Upper Abdomen: No significant findings. IMPRESSION: 1. No evidence of pulmonary embolism. 2. Left lower lobe 6 mm pulmonary nodule not definitively seen on prior. Consider optional CT in 6-12 months for stability.
--- NOTE | 2022-09-15 19:24 | ED ---
General Adult HPI - General Chief complaint: Extremity Problem,Nontraumatic Stated complaint: poss DVT lt leg Time Seen by Provider: 09/15/22 17:26 Source: patient, RN notes reviewed, old records reviewed Mode of arrival: ambulatory Limitations: no limitations - History of Present Illness Initial comments: This is a 52-year-old female presents emergency department with past medical history significant for DVTs and is currently on Xarelto. Patient states she's noticed some pain in the posterior calf on the left as well as a little swelling to the foot so she decided to come to the emergency department be evaluated. Patient also stated she felt a little short of breath but she wasn't sure if it was her COPD her anxiety possibly secondary to the situation. Patient denies any chest pain or palpitations. Patient denies any lightheadedness or di zziness. Patient denies abdominal pain. Patient denies any recent fever chills or cough. - Related Data Home Medications Medication Instructions Recorded Confirmed Ergocalciferol [Vitamin D2 (1250 1,250 mcg PO Q30D 09/15/22 09/15/22 Mcg = [id number] Iu)] Fluticasone/Umeclidin/Vilanter 1 puff INHALATION RT-DAILY 09/15/22 09/15/22 [Trelegy Ellipta 100-62.5-25] Rivaroxaban [Xarelto] 20 mg PO DAILY 09/15/22 09/15/22 Thyroid,Pork [[place] Thyroid] 120 mg PO DAILY 09/15/22 09/15/22 Allergies Allergy/AdvReac Type Severity Reaction Status Date / Time No Known Allergies Allergy Verified 09/15/22 19:07 Review of Systems ROS Statement: Those systems with pertinent positive or pertinent negative responses have been documented in the HPI. ROS Other: All systems not noted in ROS Statement are negative. Past Medical History Past Medical History: COPD, Deep Vein Thrombosis (DVT), Thyroid Disorder Additional Past Medical History / Comment(s): history of 2 DVT in left leg, History of Any Multi-Drug Resistant Organisms: None Reported Past Surgical History: Tubal Ligation Additional Past Surgical History / Comment(s): breast augmentation, "tummy tuck", "bladder prolapse surgery" Past Psychological History: No Psychological Hx Reported Smoking Status: Current every day smoker Past Alcohol Use History: Rare Past Drug Use History: Marijuana General Exam - General Exam Comments Initial Comments: GENERAL: Patient is well-developed and well-nourished. Patient is nontoxic and well- hydrated and is in no acute distress. ENT: Neck is soft and supple. No significant lymphadenopathy is noted. Oropharynx is clear. Moist mucous membranes. Neck has full range of motion without eliciting any pain. EYES: The sclera were anicteric and conjunctiva were pink and moist. Extraocular movements were intact and pupils were equal round and reactive to light. Eyelids were unremarkable. PULMONARY: Unlabored respirations. Good breath sounds bilaterally. No audible rales rhonchi or wheezing was noted. CARDIOVASCULAR: There is a regular rate and rhythm without any murmurs gallops or rubs. ABDOMEN: Soft and nontender with normal bowel sounds. SKIN: Skin is clear with no lesions or rashes and otherwise unremarkable. NEUROLOGIC: Patient is alert and oriented x3. Cranial nerves II through XII are grossly intact. Motor and sensory are also intact. Normal speech, volume and content. Symmetrical smile. MUSCULOSKELETAL: Normal extremities with adequate strength and full range of motion. Patient has low swelling to the left leg below the knee. Patient also has some left calf tenderness. LYMPHATICS: No significant lymphadenopathy is noted PSYCHIATRIC: Patient is mildly anxious Limitations: no limitations Course Vital Signs 09/15/22 16:34 Temperature 97 F L Pulse Rate 84 Respiratory 20 Rate Blood Pressure 130/92 O2 Sat by Pulse 98 Oximetry Medical Decision Making - Medical Decision Making Was pt. sent in by a medical professional or institution? @ -No Did you speak to anyone other than the patient for history? @ -No Did you review nursing and triage notes? @ -Agree with nursing notes Were old charts reviewed? @ -No streaking Differential Diagnosis? @ -ALLERGIC reaction, infection, poison asaf, DVT, superficial thrombus phlebitis EKG interpreted by me (3pts min.)? @ -EKG was interpreted by me EKG shows sinus rhythm at 67 bpm MA interval versus a 4 tresses 89 Q-T intervals 32 QTC is 397 beats patient's EKG shows no ST segment elevation or depression. X-rays interpreted by me (1pt min.)? @ -None CT interpreted by me (1pt min.)? @ -CT abdomen was interpreted by myself. I saw no pulmonary embolism and radiology verify this as well. U/S interpreted by me (1pt. min.)? @ -Showed a superficial thrombus of his lesser saphenous vein right at the junction of the popliteal What testing was considered but not performed? (CT, X-rays, U/S, labs)? Why? @ -None What meds were considered but not given? Why? @ -None Did you discuss the management of the patient with other professionals? @ -No Did you reconcile home meds? @ -No Was smoking cessation discussed for >3mins.? @ I discussed smoking cessation for greater than 3 minutes. The risk of smoking were discussed with the patient including but not limited to risks of cancer, stroke, coronary artery disease and COPD. Also discussed with patient were multiple methods of quitting smoking. Lastly we discussed the financial cost of smoking. Was critical care preformed (if so, how long)? @ -No Were there social determinants of health that impacted care today? How? (Homelessness, low income, unemployed, alcoholism, drug addiction, transportation, low edu. Level, literacy, decrease access to med. care, custodial, rehab)? @ -No Was there de-escalation of care discussed even if they declined? (Discuss DNR or withdrawal of care, Hospice)? @ -No What co-morbidities impacted this encounter? (DM, HTN, Smoking, COPD, CAD, Cancer, CVA, Hep., AIDS, mental health diagnosis, sleep apnea, morbid obesity)? @ -No Was patient admitted / discharged? @ -Discharge. Patient will continue taking Xarelto and follow up with hematology. I spoke with Dr. Shaw she stated that if the computed tomography scan showed no pulmonary embolism the patient should go home on Xarelto and follow up with hematology. Undiagnosed new problem with uncertain prognosis? @ -None Drug Therapy requiring intensive monitoring for toxicity (Heparin, Nitro, Insul in, Cardizem)? @ -None Were any procedures done? @ -No Diagnosis/symptom? @ -Superficial thrombophlebitis of the lesser saphenous vein Acute, or Chronic, or Acute on Chronic? @ -Acute Uncomplicated (without systemic symptoms) or Complicated (systemic symptoms)? @ -Uncomplicated Side effects of treatment? @ -None Exacerbation, Progression, or Severe Exacerbation] @ -no Poses a threat to life or bodily function? @ -no - Lab Data Result diagrams: 09/15/22 18:16 09/15/22 18:16 Lab Results 09/15/22 09/15/22 Range/Units 18:16 18:16 WBC 10.4 (3.8-10.6) k/uL RBC 5.19 (3.80-5.40) m/uL Hgb 16.5 H (11.4-16.0) gm/dL Hct 48.4 H (34.0-46.0) % MCV 93.2 (80.0-100.0) fL MCH 31.9 (25.0-35.0) pg MCHC 34.2 (31.0-37.0) g/dL RDW 13.3 (11.5-15.5) % Plt Count 241 (150-450) k/uL MPV 9.4 Neutrophils % 50 % Lymphocytes % 41 % Monocytes % 6 % Eosinophils % 2 % Basophils % 1 % Neutrophils # 5.2 (1.3-7.7) k/uL Lymphocytes # 4.2 (1.0-4.8) k/uL Monocytes # 0.6 (0-1.0) k/uL Eosinophils # 0.3 (0-0.7) k/uL Basophils # 0.1 (0-0.2) k/uL Sodium 140 (137-145) mmol/L Potassium 4.1 (3.5-5.1) mmol/L Chloride 103 (98-107) mmol/L Carbon Dioxide 30 (22-30) mmol/L Anion Gap 7 mmol/L BUN 14 (7-17) mg/dL Creatinine 0.92 (0.52-1.04) mg/dL Est GFR (CKD-EPI)AfAm 82 (>60 ml/min/1.73 sqM) Est GFR (CKD-EPI)NonAf 71 (>60 ml/min/1.73 sqM) Glucose 120 H (74-99) mg/dL Calcium 9.6 (8.4-10.2) mg/dL Total Bilirubin 0.4 (0.2-1.3) mg/dL AST 24 (14-36) U/L ALT 20 (4-34) U/L Alkaline Phosphatase 87 (38-126) U/L Total Protein 7.2 (6.3-8.2) g/dL Albumin 4.5 (3.5-5.0) g/dL Disposition Clinical Impression: Superficial thrombophlebitis Disposition: HOME SELF-CARE Condition: Good Additional Instructions: Patient should continue Xarelto and then follow up with hematology to determine why she continues to get clots. Patient should also quit smoking. Is patient prescribed a controlled substance at d/c from ED?: No Referrals: Pranay Calles MD [Primary Care Provider] - 1-2 days Time of Disposition: 19:30
== END 2022-09-15 20:09 | disposition home or self-care (01) ==
LOC: EC 16:28
DX: I80.02 Phlebitis and thrombophlebitis of superficial vessels of left lower extremity (principal); J44.9 Chronic obstructive pulmonary disease, unspecified; F17.200 Nicotine dependence, unspecified, uncomplicated; F12.90 Cannabis use, unspecified, uncomplicated
CPT/HCPCS: 36415; 80053; 85025; 93971; 71275; 99284; Q9967

== ENCOUNTER → 2024-10-01 | Outpatient (CLI) | payer OTHER ==
--- NOTE | 2024-10-01 13:53 | CTL ---
EXAMINATION TYPE: CT Low Dose Lung DATE OF EXAM: 10/01/2024 11:34 AM COMPARISON: None. CLINICAL INDICATION: Female, 54 years old with history of F17.210 nicotine dependence, personal hx of nicotine dependence 1ppd X 40 years current smoker, Lung cancer screening, History of tobacco use. TECHNIQUE: Low dose computed tomography scan was performed through the chest at 1 mm thick sections a nd reconstructed images in the coronal plane at 1 mm thick sections. Contrast used: mL of , (none if empty) Oral contrast used: (none if empty) CT DLP: 53.27 mGycm, Automated exposure control for dose reduction was used. CT CTDI: 1.53 mGy, Automated exposure control for dose reduction was used. SCREENING VISIT: CT DIAGNOSTIC QUALITY: Limited, but interpretable FINDINGS: LUNG NODULES: None. Exam is very limited and small nodules are unlikely to be visualized LUNGS: COPD: Severity: None Fibrosis: Severity: None Lymph nodes: None Other findings: None RIGHT PLEURAL SPACE: Effusion: None Calcification: None Thickening: None Pneumothorax: None LEFT PLEURAL SPACE: Effusion: None Calcification: None Thickening: None Pneumothorax: None HEART: Other: Ascending thoracic aorta at the level the main pulmonary artery measures 3.8 cm. The main pul monary artery at the bifurcation measures 3.8 cm. Heart Size: Normal Coronary calcification: None Pericardial effusion: None OTHER FINDINGS: Upper abdomen: Normal Bony thorax: Normal Supraclavicular region: Normal IMPRESSION: 1. No suspicious changes. 2. Exam is extremely limited, consider repeat exam FOLLOW UP CT CHEST RECOMMENDATION: CT LUNG RAD: [facility], , 10/01/2024 1:51 PM
== END | disposition home or self-care (01) ==
LOC: RADCTMAIN 09:54
PROVIDERS: ATTEND Internal Medicine Critical Care Medicine
DX: Z12.2 Encounter for screening for malignant neoplasm of respiratory organs (principal); F17.210 Nicotine dependence, cigarettes, uncomplicated
CPT/HCPCS: 71271

== ENCOUNTER → 2024-10-01 | Outpatient (CLI) | payer OTHER ==
--- NOTE | 2024-10-01 14:11 | CT ---
EXAMINATION TYPE: CT abdomen wo/w con DATE OF EXAM: 10/01/2024 11:34 AM COMPARISON: None. CLINICAL INDICATION: Female, 54 years old with history of D35.00 adrenal adenoma, adrenal adenoma TECHNIQUE: Axial images were obtained from above the diaphragm to the iliac crests in the axial plane at 5 mm thick sections. Reconstructed images are reviewed on the computer in the coronal plane. CONTRAST: 100 mL of Isovue 300. Study performed with Oral Contrast DLP: 2021 mGycm, Automated exposure control for dose reduction was used. FINDINGS: Limited CT sections are obtained the lung bases. There is a punctate peripheral density posterior la teral right lung base. Series 16 image 8. There is a 0.7 cm nodule posterior lateral left lung base. Series [address] ABDOMEN: Liver: Normal Spleen: Normal Pancreas: Normal Adrenal glands: There is a small nodule left adrenal gland. This measures 6 Hounsfield units precontr ast, 42 Hounsfield units postcontrast, and 15 Hounsfield units on washout delayed images. The absolut e washout is 75%. Relative washout is 64%. Findings are consistent with an adenoma.. Right adrenal gl and appears unremarkable Gallbladder: Normal Kidneys: No masses are evident. No hydronephrosis is present. No cysts are present. Delayed images were obtained through the kidneys, which remain unremarkable. Aorta: Normal Inferior vena cava: Normal. IMPRESSION: 1. Findings consistent with adenoma left adrenal gland. 2. 0.7 cm nodule posterior lateral left lung base. Short-term follow-up recommended. Neoplasm is not excluded [facility], Workstation: [employer], 10/01/2024 2:09 PM
== END | disposition home or self-care (01) ==
LOC: RADCTMAIN 09:57
PROVIDERS: ATTEND Family Medicine
DX: D35.00 Benign neoplasm of unspecified adrenal gland (principal); R91.1 Solitary pulmonary nodule
CPT/HCPCS: 74170; Q9967